=== PATIENT | female | born 1955 | race Caucasian/White ===

== ENCOUNTER 2025-02-20 15:59 | Emergency (ER) | payer MEDICARE, SELFPAY ==
--- OUTSIDE RECORDS SUMMARY | 2025-02-20 16:26 | XMS_ITS | Encounter Summary ---
Author Organization [facility] Address [facility] [place] [address] Care Team Providers Care Inspector Ball Points Name Role Phone Pancho Villegas Primary Care Provid er Barber Arce MD Unavailable [phone] Source Comments In the event this information is protected by the Federal Confidentiality of Alcohol and Drug AbusePatient Records regulations: The Federal rules restrict any use of the information to criminally investigate or prosecute any alcohol or drug abuse patient.[facility] Encounter Details Date Type Department Care Team (Late st Contact Info) Description 10/07/2022 Patient Msg Gynecology Oncology [address] [place] [address] [place] [address] Amina Meeks MD [facility] [place] [address] Appointment Cancellation Request Social History Tobacco Use Types Packs/Day Years Used Date Smoking Tobacco: Never Smokeless Tobacco: Never Alcohol Use Standard Drinks/Week Comments Not Currently 0 (1 standard drink = 0.6 oz pur e alcohol) Area Deprivation Index Answer Date Anish rded National Score (1-100), lower number is lower ri sk 52 07/11/2022 State Score (1-10), lower number is lower risk N ot on file 07/11/2022 Data from: https://www.neighborhoodatlas.medicine.[facility].edu/. Last address used for calculation [address] 07/11/2022 Comments No Sex and Gender Information Value Date Recorded Sex Assigned at Not on file Legal Sex Female 2:22 PM EST Gender Identity Not on file Sexual Orientation Not on file documented as of this encounter Plan of Treatment Upcoming Encounters Date Type Department Care Team (Late st Contact Info) Description 07/12/2025 2:15 PM EST Visit (SP) Office Gynecology Oncology [address] [place] [address] [place] [address] Amina Meeks MD [address] [place] [address] 1 year follow up documented as of this encounter Visit Diagnoses Not on filedocumented in this encounter Care Teams Inspector Ball Points Relationship Specialty Start Date End Date Pancho Villegas DO [address] [place] [address] PCP - General Family Medicine 07/14/22 Barber Arce MD [address] [place] [id number] Acetylene Plant Operator 09/09/22 documented as of this encounter
--- OUTSIDE RECORDS SUMMARY | 2025-02-20 16:26 | XMS_ITS | Encounter Summary ---
Author Organization [facility] Address [address] [place] [address] Care Team Providers Care Middleware Administrator Name Role Phone Pancho Villegas DO Unavailable [phone] Henryjose Pancho Mauro DO Primary Care Provider + [phone] Pancho Villegas DO Unavailable [phone] Encounter Details Date Type Department Care Team (Late st Contact Info) Description 04/14/2023 External Result Encounter [facility] External Department Unsolicited Ksenia Myers DPM [address] [place] [address] Social History Tobacco Use Types Packs/Day Years Used Date Smoking Tobacco: Never Smokeless Tobacco: Never Alcohol Use Standard Drinks/Week Comments Never 0 (1 standard drink = 0.6 oz pur e alcohol) caffeine 1-2 cups per day Humiliation, Afraid, Rape, and Kick questionnair e Answer Date Recorded Within the last year, have y ou been afraid of your partner or ex-partner? No 03/24/2023 Within the last year, have y ou been humiliated or emotionally abused in other ways by your partner or ex-partner? No Within the last year, have y ou been kicked, hit, slapped, or otherwise physically hurt by your partner or ex-partner? No 03/24/2023 Within the last year, have y ou been raped or forced to have any kind of sexual activity by your partner or ex-partner? No 03/24/2023 Social Connection and Isolat ion Panel [NHANES] Answer Date Recorded In a typical week, how many times do you talk on the phone with family, friends, or neighbors? Once a week 03/24/2023 How often do you get togethe r with friends or relatives? Patient declined 03/24/2023 How often do you attend chur or sabianist services? More than 4 times per year 03/24/2023 Do you belong to any clubs o r organizations such as mormon groups, unions, fraternal or athletic groups, or school groups? No 03/24/2023 How often do you attend meet ings of the clubs or organizations you belong to? Never 03/24/2023 Are you , , di vorced, , never , or living with a partner? 03/24/2023 AUDIT-C Answer Date Recorded Q1: How often do you have a drink containing alcohol? Never 03/24/2023 Q2: How many drinks containi ng alcohol do you have on a typical day when you are drinking? Patient does not drink Q3: How often do you have si x or more drinks on one occasion? Never 03/24/2023 Overall Financial Resource Strain (CARDIA) Answe r Date Recorded How hard is it for you to pa y for the very basics like food, housing, medical care, and heating? Not very hard 03/24/2023 PHQ-2 Answer Date Recorded Patient Health Questionnaire-2 Score 1 2023 [facility] - Occupational Stress Questionnaire Answer Date Recorded Do you feel stress - tense, restless, nervous, or anxious, or unable to sleep at night because your mind is troubled all the time - these days? Only a little 03/24/2023 Exercise Vital Sign Answer Date Recorde d On average, how many days pe r week do you engage in moderate to strenuous exercise (like a brisk walk)? 4 days Minutes of Exercise per Session Not on file 03/24/2023 Hunger Vital Sign Answer Date Recorded Within the past 12 months, y ou worried that your food would run out before you got the money to buy more. Sometimes true Within the past 12 months, t he food you bought just didn't last and you didn't have money to get more. Never true PRAPARE - Transportation Answer Date Re corded In the past 12 months, has l ack of transportation kept you from medical appointments or from getting medications? No 02/28 In the past 12 months, has l ack of transportation kept you from meetings, work, or from getting things needed for daily living? No 03/24/2023 Housing Stability Vital Sign Answer Dragan e Recorded In the last 12 months, was t here a time when you were not able to pay the mortgage or rent on time? No 03/24/2023 In the last 12 months, how many places have you lived? 1 03/24/2023 In the last 12 months, was t here a time when you did not have a steady place to sleep or slept in a long-term (including now)? No 03/24/2023 Comments Unknown Sex and Gender Information Value Date Recorded Sex Assigned at Not on file Legal Sex Female 8:27 PM EDT Gender Identity Not on file Sexual Orientation Not on file COVID-19 Exposure Response Date Recorded In the last 10 days, have yo u been in contact with someone who was confirmed or suspected to have Coronavirus/COVID-19? No / Unsure 04/09/2023 2:26 PM EDT documented as of this encounter Plan of Treatment Upcoming Encounters Date Type Department Care Team (Late st Contact Info) Description 09/05/2025 3:25 PM EDT Office Visit [facility] [address] [place] [address] Rosalia Pimentel, MUSHROOM GROWING SUPERVISOR-SECURITY SYSTEMS ADMINISTRATOR [address] [place] [address] documented as of this encounter Procedures Procedure Name Priority Date/Time Associated Diagnosis Comments ECG 12-LEAD 04/14/2023 12:11 PM EDT documented in this encounter Results * ECG 12 lead (04/14/2023 12:11 PM EDT) 04/14/2023 12:1 1 PM EDT [facility] - 06/03/2023 10:53 AM [facility] Main [address] [address] Electrocardiograph Report Signed Patient: Jessica Carranza MR#: [id number] 37 : 1955 Acct:[id number] Age/Sex: 68 / F ADM Date: 04/14/23 Loc: Room: Type: [facility] Attending Dr: Ksenia Myers DPM Ordering Provider: sKenia Myers DPM Date of Service: 04/14/23/ ECG/ECG 12 lead ECG: pst Copies to: Test Reason : Blood Pressure : / mmHG Vent. Rate : 069 BPM Atrial Rate : 069 BPM P-R Int : 164 ms QRS Dur : 080 ms QT Int : 408 ms P-R-T Axes : 066 -01 064 degrees QTc Int : 437 ms Normal sinus rhythm Normal ECG When compared with ECG of 22-SEP-2018 01:38, Criteria for Septal infarct are no longer present Confirmed by [facility]IA[facility] RICK [facility] ([id number] on 04/14/2023 2:42:50 PM Referred By: Electronically Signed By:LYNN LEMUS MD [facility] Transcribed By: MUS Signed By Jarek Lemus MD 04/14/23 1442 Procedure Note Joann Lemus MD - 06/03/2023 [facility] Main [place] [id number] Electrocardiograph Report Signed Patient: Jessica Carranza MMR#: [id number] [birth year] : 1955cct:[id number] Age/Sex: 68 / FADM Date: 04/14/23 Loc: Room:Type: [facility] Attending Dr: Ksenia Myers DPM Ordering Provider: Ksenia Myers DPM Date of Service: 04/14/23/ ECG/ECG 12 lead ECG: pst Copies to: Test Reason : Blood Pressure : / mmHG Vent. Rate : 069 BPM Atrial Rate : 069 BPM P-R Int : 164 ms QRS Dur : 080 ms QT Int : 408 ms P-R-T Axes : 066 -01 064 degrees QTc Int : 437 ms Normal sinus rhythm Normal ECG When compared with ECG of 22-SEP-2018 01:38, Criteria for Septal infarct are no longer present Confirmed by [facility] ([id number]) on 04/14/2023 2:42:50 PM Referred By: Electronically Signed By:LYNN LEMUS MD, FACC Transcribed By: MUS Signed By Jarek Lemus MD 04/14/23 1442 us Ksenia Myers DPM ECG ORDERABLES Final Resu lt [facility] [address] [place] [address], documented in this encounter Visit Diagnoses Not on filedocumented in this encounter Care Teams Middleware Administrator Relationship Specialty Start Date End Date Pancho Villegas DO [address] [place] [address] PCP - Devoted 06/29/22 06/28/24 Pancho Villegas DO [address] [place] [address] PCP - General Family Medicine 01/07/23 Pancho Villegas DO [address] [place] [address] PCP - Medical [place] 06/29/2406/28 documented as of this encounter
--- OUTSIDE RECORDS SUMMARY | 2025-02-20 16:26 | XMS_ITS | Encounter Summary ---
Author Organization [facility] Address [address] [place] [address] Care Team Providers Care Behavioral Pediatrician Name Role Phone Pancho Villegas DO Unavailable [phone] Pancho Villegas DO Primary Care Provider + [phone] Pancho Villegas DO Unavailable [phone] Encounter Details Date Type Department Care Team (Late st Contact Info) Description 2023 Abstract [facility] [address] [place] [address] Pancho Villegas, DO [address] [place] [address] Social History Tobacco Use Types Packs/Day Years [...] 03/24/2023 How often do you attend chur ch or scientology services? More than 4 times per year 03/24/2023 Do you belong to any clubs o r organizations such as congregational groups, unions, fraternal or athletic groups, or [...] Recorded Patient Health Questionnaire-2 Score 1 2023 [facility] Answer Date Recorded [...] suspected to have Coronavirus/COVID-19? No / Unsure 03/24/2023 10:48 AM EDT documented as of this encounter Functional Status * Over the past 2 weeks, how often have you been bothered by any of the following problems? Question Answer Date of Assessment Author Little interest or pleasure in doing things Not at all 2023 9:34 AM EDT Monica Carranza LP N Feeling down, depressed, or hopeless Several days 2023 9:34 AM EDT Monica Carranza LP N Patient Health Questionnaire -2 Score 1 2023 9:34 AM EDT Monica Carranza LP N documented as of this encounter Plan of Treatment Upcoming Encounters Date Type Department Care Team (Late st Contact Info) Description 09/05/2025 3:25 PM EDT Office Visit [facility] [address] [place] [address] Rosalia Pimentel, MEDICAL DRIVER-SULFUR BURNER [address] [place] [address] documented as of this encounter Visit Diagnoses Not on filedocumented in this encounter Care Teams Behavioral Pediatrician Relationship Specialty Start Date End Date Pancho Villegas DO [address] [place] [address] PCP - Devoted 06/29/22 06/28/24 Pancho Villegas DO [address] [place] [address] PCP - General Family Medicine 01/07/23 Pancho Villegas DO [address] [place] [address] PCP - Medical [facility] 06/29/2406/28 documented as of this encounter
--- OUTSIDE RECORDS SUMMARY | 2025-02-20 16:26 | XMS_ITS | Clinical Summary ---
Author Organization [facility] Address [address] [place] [address] Care Team Providers Care Panel Saw Operator Name Role Phone Pancho Villegas DO Primary Care Provider [phone] Pancho Villegas DO Unavailable [phone] Allergies No known active allergies Medications CINNAMON PO Take by mouth 1 (one) time each day at the same time. Active cholecalciferol (Vitamin D-3) 50 MCG (2000 UT) tablet Take by mouth 1 (one) time each day at the same time. Active Turmeric (Curcumin 95) 500 MG capsule as directed Orally Active calcium carbonate (Os-Mauricio) 1250 (500 Ca) MG tablet Take by mouth every 12 (twelve) hours. Active ascorbic acid (Vitamin C) 500 MG tablet Take by mouth 1 (one) time each day at the same time. Active SILVER EX Silver Active zinc 50 MG tablet Take by mouth. Active Magnesium 500 MG capsule 1 (one) time each day at the same time. Active Elderberry 500 MG capsule 1 capsule. Active [place]-3 Fatty Acids (Fish Oil) 1000 MG capsule delayed-release Take by mouth. Active FLUoxetine (PROzac) 20 MG capsuleIndication s:Anxiety Take 1 capsule (20 mg) by mouth Daily 90 capsule 1 5 04/18/20 25 Active olmesartan-hydroC HLOROthiazide (BENIcar HCT) 20-12.5 MG tabletIndications :Essential hypertension Take 1 tablet by mouth Daily 90 tablet 1 5 04/18/20 25 Active Tretinoin (Altreno) 0.05 % lotionIndications :Rhytides Apply a thin layer topically to the face at bedtime. 45 g 6 5 Active Active Problems Problem Noted Date Diagnosed Date CMC arthritis 2023 Mild major depression 2023 Hypertension 07/14/2022 Overview (02/25/2024): Last Assessment & Plan: Assessment: stable on medications History of hysterectomy 05/08/2020 Hyperlipidemia 11/17/2018 Anxiety 04/20/2018 Essential hypertension 04/20/2018 Overview (2023): Last Assessment & Plan: Assessment: stable on medications 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 disorder 03/30 Resolved Problems Problem Noted Date Diagnosed Date Resolved Date Obesity (BMI 30-39.9) 03/31/20232022 Psychophysiological insomnia 2023 2023 Right Achilles tendinitis 2023 Localized, primary osteoarthritis of hand 11/07/2021 2023 Foot pain 02/27/2021 2023 Female cystocele 05/08/2020 2023 Genital warts 05/08/2020 2023 Gynecological disease 05/08/20202022 Leukocytosis 11/17/2018 2023 Obesity 04/20/2018 2023 Encounters Date Type Department Care Team Description 12/04/2024 Results Follow-Up [facility] [address] [place] [address] Pancho Villegas DO POCT Urinalysis dipstick, Urine culture (clean catch), Urine Culture Clean Catch Reflex 11/29/2024 1:30 PM EDT Office Visit [facility] [address] [place] [address] Pancho Villegas DO Acute cystitis with hematuria (Primary Dx); Dysuria; Routine general medical examination at a health care facility; 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 disorder; Essential hypertension ; Anxiety; Mixed hyperlipidemia ; Mild major depression ; Primary hypertension ; Severe obesity (BMI 35.0-39.9) with comorbidity (CMS-HCC); CMC arthritis 11/29/2024 Bamboo flowsheet [facility] [address] [place] [address] Pancho Villegas DO 11/29/2024 Travel from Last 3 Months Immunizations Immunization Administration Dates Next Due Pneumococcal Conjugate PCV 13 04/20/2018 Pneumococcal Polysaccharide PPSV23 12/13/2019 Family History Medical History Relation Name Comments Cancer Father Heart disease Mother Hyperlipidemia Mother Hypertension Mother Ovarian cancer Sister 5 Relation Name Status Comments Brother 5 Daughter 1 Father Mother Sister 5 Son 1 Social History Tobacco Use Types Packs/Day Years Used Date Smoking Tobacco: Never Smokeless Tobacco: Never Tobacco Cessation:Counseling Given: No Alcohol Use Standard Drinks/Week Comments Never 0 (1 standard drink = 0.6 oz pure alcohol) caffeine intake:1-2 cups per day coffee B1300 Health Literacy Answer Date Recor ded How often do you need to hav e someone help you when you read instructions, pamphlets, or other written material from your doctor or pharmacy? Never 05/24/2024 Humiliation, Afraid, Rape, and Kick questionnair e [...] the phone with family, friends, or neighbors? Twice a week 05/24/2024 How often do you get togethe r with friends or relatives? Once a week 05/24/2024 How often do you attend [facility] or religion services? More than 4 times per year 05/24/2024 Do you belong to any clubs o r organizations such as baptist groups, unions, fraternal or athletic groups, or school groups? Yes 05/24/2024 Attends Club or Organization Meetings Not on bayron e 05/24/2024 Are you , , di vorced, , never , or living with a partner? 05/24/2024 AUDIT-C Answer Date Recorded Q1: How often do you have a drink containing alcohol? Never 05/24/2024 Q2: How many drinks containi ng alcohol do you have on a typical day when you are drinking? Patient does not drink Q3: How often do you have si x or more drinks on one occasion? Never 05/24/2024 Overall Financial Resource Strain (CARDIA) Answe r Date Recorded How hard is it for you to pa y for the very basics like food, housing, medical care, and heating? Not very hard 05/24/2024 PHQ-2 Answer Date Recorded Patient Health Questionnaire-2 Score 0 11/29/2024 [facility] - Occupational Stress Questionnaire Answer Date Recorded Do you feel stress - tense, restless, nervous, or anxious, or unable to sleep at night because your mind is troubled all the time - these days? Only a little 05/24/2024 Exercise Vital Sign Answer Date Recorde d On average, how many days pe r week do you engage in moderate to strenuous exercise (like a brisk walk)? 3 days 05/24/2024 On average, how many minutes do you engage in exercise at this level? 30 min 05/24/2024 Hunger Vital Sign Answer Date Recorded Within the past 12 months, y ou worried that your food would run out before you got the money to buy more. Patient declined Within the past 12 months, t he food you bought just didn't last and you didn't have money to get more. Never true PRAPARE - Transportation Answer Date Re corded In the past 12 months, has l ack of transportation kept you from medical appointments or from getting medications? No 04/30 In the past 12 months, has l ack of transportation kept you from meetings, work, or from getting things needed for daily living? No 05/24/2024 Housing Stability Vital Sign Answer Dragan e [...] place to sleep or slept in a chcf (including now)? No 03/24/2023 Housing Stability Vital Sign Answer Dragan e Recorded In the last 12 months, was t here a time when you were not able to pay the mortgage or rent on time? No 05/24/2024 Number of Times Moved in the Last Year Not on fi le 05/24/2024 At any time in the past 12 [facility], were you homeless or living in a chcf (including now)? No 05/24/2024 Comments Unknown Sex and Gender Information Value Date Recorded Sex Assigned at Not on file Legal Sex Female 8:27 PM EDT Gender Identity Not on file Sexual Orientation Not on file Last Filed Vital Signs Vital Sign Reading Time Taken Comments Blood Pressure 110/68 11/29/2024 1:34 PM EDT Pulse 80 11/29/2024 1:34 PM EDT Temperature 36.8 C (98.2 F) 11/29/2024 1:34 PM EDT Respiratory Rate - - Oxygen Saturation 98% 11/29/2024 1:34 PM EDT Inhaled Oxygen Concentration - - Weight 91.6 kg (202 lb) 11/29/2024 1:34 PM EDT Height 158.8 cm (5' 2.5 ) 11/29/2024 1:34 PM EDT Body Mass Index 36.36 11/29/2024 1:34 PM EDT Plan of Treatment Upcoming Encounters Date Type Department Care Team (Late st Contact Info) Description 09/05/2025 3:25 PM EDT Office Visit [facility] [address] [place] [address] Rosalia Pimentel APRN-LAW FIRM ADMINISTRATOR [address] [place] [address] Health Maintenance Due Date Last Done Comments CT Colonography 1953 Colonoscopy 1955 FIT 1953 FOBT 1955 Sigmoidoscopy 1955 Influenza Vaccine (#1) 2025 Mammogram 08/18/2025 08/18/2024, 03/31, 11/18/2021, Additional history exists Medicare Annual Wellness (AWV) 11/29/2025 0 11/29/2024, 06/16/2024, 2023 Colorectal Cancer Screening 06/29/2027 FIT-DNA 06/29/2027 06/29/2024, 05/30, 06/18/2021, Additional history exists Pneumococcal Vaccine: 65+ Years Completed , 04/20/2018 Procedures Procedure Name Priority Date/Time Associated Diagnosis Comments POCT URINALYSIS DIPSTICK Routine 11/29/2024 1:49 PM EDT Dysuria URINE CULTURE CLEAN CATCH REFLEX Routine 11/29/2024 12:00 AM EDT CULTURE, URINE, ROUTINE Routine 11/29/2024 12:00 AM EDT Dysuria BI MAMMOGRAM SCREENING TOMOSYNTHESIS BILATERAL Routine 08/18/2024 2:32 PM EST Encounter for screening mammogram for malignant neoplasm of breast LAB COLOGUARD COLON CANCER SCREEN Routine 06/18/2021 from Last 3 Months or Most Recently Relevant to Health Maintenance Results * (ABNORMAL) POCT Urinalysis dipstick (11/29/2024 1:49 PM EDT) Color, UA Yellow Clarity, UA Cloudy Glucose, UA Negative Negative - 1999(110) ++++ mg/dL Bilirubin, UA Negative Negative - 4(70) +++ mg/dL Ketones, UA Negative Negative - 160(16) ++++ mg/dL Spec Grav, UA 1.010 1 - 1.03 Blood, UA Positive Negative - 50 Rich/mcL pH, UA 6.0 5 - 9 Protein, UA Negative Negative - 1999(20) ++++ mg/dL Urobilinogen, UA 0.2 0.2 - 12 mg/dL Leukocytes, UA Positive Negative - 500+++ Aby/mcL Nitrite, UA Positive Negative - Positive Urine 11/29/2024 1:49 PM EDT Pancho Villegas DO POINT OF CARE TEST ENTER/E DIT ORDERABLES Final Result * (ABNORMAL) Urine Culture Clean Catch Reflex (11/29/2024 12:00 AM EDT) Ur Cult 1 Escherichia coli(A) [facility] Comment: Cefazolin with an JERRICA <=16 predicts susceptibility to the oral agents cefaclor, cefdinir, cefpodoxime, cefprozil, cefuroxime, cephalexin, and loracarbef when used for therapy of uncomplicated urinary tract infections due to E. coli, Klebsiella pneumoniae, and Proteus mirabilis. 25,000-50,000 colony forming units per mL Ur Cult Suscep Comment [facility] Comment: S = Susceptible; I = Intermediate; R = Resistant P = Positive; N = Negative MICS are expressed in micrograms per mL Antibiotic RSLT#1 RSLT#2 RSLT#3 RSLT#4 Amoxicillin/Clavulanic Acid S Ampicillin S Cefazolin S Cefepime S Cefoxitin S Cefpodoxime S Ceftriaxone S Ciprofloxacin S Ertapenem S Gentamicin S Levofloxacin S Meropenem S Nitrofurantoin S Piperacillin/Tazobactam S Tetracycline S Tobramycin S Trimethoprim/Sulfa S 11/29/2024 11/29/2024 Narrative [facility] - 12/02/2024 3:07 PM EDT Performed at: - [address] [id number] Cost Report Clerk: Michele Carvalho PhD, Phone: [phone] Pancho Villegas DO LAB URINE ORDERABLES Final Result [facility] * (ABNORMAL) Urine culture (clean catch) (11/29/2024 12:00 AM EDT) Urine Cult Rt Status Final report(A) [facility] Urine Urine specimen obtained by clean catch procedure / Unknown 11/29/2024 11/29/2024 Comment:Urine, Clean Catch P r Narrative [facility] - 12/02/2024 3:07 PM EDT Performed at: 01 - [address] [id number] Cost Report Clerk: Michele Carvalho PhD, Phone: [phone] us Pancho Villegas DO LAB MICROBIOLOGY - GENERAL ORDERABLES Final Result [facility] * Bilateral screening mammogram with tomosynthesis (08/18/2024 2:32 PM EST) Anatomical Region Laterality Modality Breast Bilateral Mammography 08/18/2024 3:44 PM EST Impressions 08/18/2024 3:54 PM EST Impression: No specific evidence of malignancy seen in either breast. BIRADS 2 - Benign Findings DENSITY: There are scattered areas of fibroglandular density. FOLLOW-UP: Routine Screening Mammogram ELECTRONICALLY SIGNED BY: Jerry Sloan M.D. Narrative 08/18/2024 3:54 PM EST Examination: BI MAMMOGRAM SCREENING TOMOSYNTHESIS BILATERAL Clinical History: screening Technique: Screening digital mammography study of both breasts was performed with 2-D and 3-D tomosynthesis imaging. Study was compared to the prior exam dated 04/28/2023. Findings: There is no evidence of interval dominant spiculated mass, grouped microcalcifications, or skin thickening which would be suggestive of malignancy. A few benign-appearing calcifications are seen bilaterally. Partially visualized axillary lymph node is noted on the left and appears grossly unremarkable. Procedure Note Jerry Sloan MD - 08/18/2024 Examination: BI MAMMOGRAM SCREENING TOMOSYNTHESIS BILATERAL Clinical History: screening Technique: Screening digital mammography study of both breasts wasperformed with 2-D and 3-D tomosynthesis imaging. Study was compared tothe prior exam dated 04/28/2023. Findings: There is no evidence of interval dominant spiculated mass,grouped microcalcifications, or skin thickening which would be suggestiveof malignancy. A few benign-appearing calcifications are seen bilaterally. Partiallyvisualized axillary lymph node is noted on the left and appears grosslyunremarkable. IMPRESSION: Impression: No specific evidence of malignancy seen in either breast. BIRADS 2 - Benign Findings DENSITY: There are scattered areas of fibroglandular density. FOLLOW-UP: Routine Screening Mammogram ELECTRONICALLY SIGNED BY: Jerry Sloan M.D. Pancho Villegas DO IMG BI PROCEDURES Final Re sult * Cologuard?? colon cancer screening (06/18/2021) COLOGUARD RESULT REPORTABLE Negative Negative [facility] Comment: NEGATIVE TEST RESULT. A negative Cologuard result indicates a low likelihood that a colorectal cancer (CRC) or advanced adenoma (adenomatous polyps with more advanced pre-malignant features) is present. The chance that a person with a negative Cologuard test has a colorectal cancer is less than 1 in 1500 (negative predictive value >99.9%) or has an advanced adenoma is less than 5.3% (negative predictive value 94.7%). These data are based on a prospective cross-sectional study of 10,000 individuals at average risk for colorectal cancer who were screened with both Cologuard and colonoscopy. (Eddie Vargas et al, N Engl J Med 2014;370(14):4722-2423) The normal value (reference range) for this assay is negative. COLOGUARD RE-SCREENING RECOMMENDATION: Periodic colorectal cancer screening is an important part of preventive healthcare for asymptomatic individuals at average risk for colorectal cancer. Following a negative Cologuard result, the [place] Cancer Society and U.S. Multi-Society Task Force screening guidelines recommend a Cologuard re-screening interval of 3 years. References: [place] Cancer Society Guideline for Colorectal Cancer Screening: https://www.cancer.org/cancer/qvagr-bndeie-aapuap/vstfprejr-ewlwwmlhx-gmqewpn/ac s-rec ommendations.html.; Vasu DK, Razia CR, Klarissa PATIÑO, Colorectal Cancer Screening: Recommendations for Physicians and Patients from the U.S. Multi-Society Task Force on Colorectal Cancer Screening , Am J Gastroenterology 2017; 112:2253-4053. TEST DESCRIPTION: Composite algorithmic analysis of stool DNA-biomarkers with hemoglobin immunoassay. Quantitative values of individual biomarkers are not reportable and are not associated with individual biomarker result reference ranges. Cologuard is intended for colorectal cancer screening of adults of either sex, 45 years or older, who are at average-risk for colorectal cancer (CRC). Cologuard has been approved for use by the U.S. FDA. The performance of Cologuard was established in a cross sectional study of average-risk adults aged 50-84. Cologuard performance in patients ages 45 to 49 years was estimated by sub-group analysis of near-age groups. Colonoscopies performed for a positive result may find as the most clinically significant lesion: colorectal cancer [4.0%], advanced adenoma (including sessile serrated polyps greater than or equal to 1cm diameter) [20%] or non- advanced adenoma [31%]; or no colorectal neoplasia [45%]. These estimates are derived from a prospective cross-sectional screening study of 10,000 individuals at average risk for colorectal cancer who were screened with both Cologuard and colonoscopy. (Eddie Mallory. et al, N Engl J Med 2014;370(14):0288-7595.) Cologuard may produce a false negative or false positive result (no colorectal cancer or precancerous polyp present at colonoscopy follow up). A negative Cologuard test result does not guarantee the absence of CRC or advanced adenoma (pre-cancer). The current Cologuard screening interval is every 3 years. ([place] Cancer Society and U.S. Multi-Society Task Force). Cologuard performance data in a 10,000 patient pivotal study using colonoscopy as the reference method can be accessed at the following location: www.Schvey.Nonabox/results. Additional description of the Cologuard test process, warnings and precautions can be found at www.cologuard.com. 06/18/2021 Pancho Villegas DO LAB MOLECULAR DIAGNOSTICS ORDERABLES Final Result [facility] from Last 3 Months or Most Recently Relevant to Health Maintenance Insurance [employer] MEDICARE Care Teams Panel Saw Operator Relationship Specialty Start Date End Date Pancho Villegas DO [address] [place] [address] PCP - General Family Medicine 01/07/23 Pancho Villegas DO [address] [place] [address] PCP - Medical [facility] 06/29/2406/28
--- OUTSIDE RECORDS SUMMARY | 2025-02-20 16:26 | XMS_ITS | Encounter Summary ---
Author Organization [facility] Address [facility] [place] [address] Care Team Providers Care Conveyor Belt Installer Name Role Phone Pancho Villegas Primary Care Provid er Barber Arce MD Unavailable [phone] Source Comments In the event this information is protected by the Federal Confidentiality of Alcohol and Drug AbusePatient Records regulations: The Federal rules restrict any use of the information to criminally investigate or prosecute any alcohol or drug abuse patient.[facility] Encounter Details Date Type Department Care Team (Late st Contact Info) Description 07/14/2022 Patient Msg Pre Anesthesia [address] [place] [address] Maria Teresa Soto PA-C [address] [place], [place] [id number] Pre-Op Instructions Social History Tobacco Use Types Packs/Day Years [...] N ot on file 07/11/2022 Data from: https://www.neighborhoodatlas.[facility]/. Last address used for calculation [address] 07/11/2022 Comments Unknown Sex and Gender Information Value Date Recorded Sex Assigned at Not on file Legal Sex Female 2:22 PM EST Gender Identity Not on file Sexual Orientation Not on file documented as of this encounter Plan of Treatment Upcoming Encounters Date Type Department Care Team (Late st Contact Info) Description 07/12/2025 2:15 PM EST Visit (SP) Office Gynecology Oncology [address] [place] [address] [place] [address] Amina Meeks MD [address] [place] [address] 1 year follow up documented as of this encounter Visit Diagnoses Not on filedocumented in this encounter Care Teams Conveyor Belt Installer Relationship Specialty Start Date End Date Pancho Villegas DO [address] [place] [address] PCP - General Family Medicine 07/14/22 Barber Arce MD [address] [place] [id number] Produce Field Merchandiser 09/09/22 documented as of this encounter
--- OUTSIDE RECORDS SUMMARY | 2025-02-20 16:26 | XMS_ITS | Encounter Summary ---
Author Organization [facility] Address [address] [place] [address] Care Team Providers Care Aircraft Instrument Tester Name Role Phone Pancho Villegas DO Unavailable [phone] Pancho Villegas DO Primary Care Provider + [phone] Pancho Villegas DO Unavailable [phone] Encounter Details Date Type Department Care Team (Late st Contact Info) Description 05/04/2023 Abstract [facility] [address] [place] [address] Pancho Villegas, DO [address] [place] [address] Social History Tobacco Use Types Packs/Day Years [...] often do you attend chur ch or gnosticist services? More than 4 times per year 03/24/2023 Do you belong to any clubs o r organizations such as judaism groups, unions, fraternal or athletic groups, or [...] Recorded Patient Health Questionnaire-2 Score 1 [facility] Questionnaire Answer Date [...] place to sleep or slept in a prison (including now)? No 03/24/2023 Comments Unknown Sex [...] suspected to have Coronavirus/COVID-19? No / Unsure 05/05/2023 8:44 AM EST documented as of this encounter Plan of Treatment Upcoming Encounters Date Type Department Care Team (Late st Contact Info) Description 09/05/2025 3:25 PM EDT Office Visit [facility] [address] [place] [address] Rosalia Pimentel, HEALTH ADVISOR-CARD PAINTER [address] [place] [address] documented as of this encounter Visit Diagnoses Not on filedocumented in this encounter Care Teams Aircraft Instrument Tester Relationship Specialty Start Date End Date Pancho Villegas DO [address] [place] [address] PCP - [facility] 06/29/22 06/28/24 Pancho Villegas DO [address] [place] [address] PCP - General Family Medicine 01/07/23 Pancho Villegas DO [address] [facility] [address] [place] [address] PCP - Medical [facility] 06/29/2406/28 documented as of this encounter
--- OUTSIDE RECORDS SUMMARY | 2025-02-20 16:26 | XMS_ITS | Encounter Summary ---
Author Organization [facility] Address [address] [place] [address] Care Team Providers Care Machine Icer Name Role Phone Pancho Villegas DO Unavailable [phone] Pancho Villegas DO Primary Care Provider + [phone] Pancho Villegas DO Unavailable [phone] Encounter Details Date Type Department Care Team (Late st Contact Info) Description 05/08/2023 Abstract [facility] [address] [place] [address] Pancho Villegas, DO [address] [place] [address] Social History Tobacco Use Types Packs/Day Years [...] often do you attend chur ch or restoration services? More than 4 times per year 03/24/2023 Do you belong to any clubs o r organizations such as restorationist groups, unions, fraternal or athletic groups, or [...] Recorded Patient Health Questionnaire-2 Score 1 [facility] Questionnaire Answer Date [...] place to sleep or slept in a care home (including now)? No 03/24/2023 Comments Unknown Sex [...] Dermatology [address] [place] [address] Rosalia Pimentel, PRESSURE SUPERVISOR-REPAIRER CONTROLLER TESTER [address] [place] [address] documented as of this encounter Visit Diagnoses Not on filedocumented in this encounter Care Teams Machine Icer Relationship Specialty Start Date End Date Pancho Villegas DO [address] [place] [address] PCP - [facility]oted 06/29/22 06/28/24 Pancho Villegas DO [address] [place] [address] PCP - General Family Medicine 01/07/23 Pancho Villegas DO [address] [facility] [address] [place] [address] PCP - Medical [facility] 06/29/2406/28 documented as of this encounter
--- OUTSIDE RECORDS SUMMARY | 2025-02-20 16:26 | XMS_ITS | Encounter Summary ---
Author Organization [facility] Address [address] [facility] [place] [address] Care Team Providers Care Talent Rep Name Role Phone Pancho Villegas Primary Care Provid er Barber Arce MD Unavailable [phone] Source Comments In the event this information is protected by the Federal Confidentiality of Alcohol and Drug AbusePatient Records regulations: The Federal rules restrict any use of the information to criminally investigate or prosecute any alcohol or drug abuse patient.[facility] Encounter Details Date Type Department Care Team (Late st Contact Info) Description 06/16/2022 Lab Requisition [facility] [address] [place] [address] Amina Meeks MD [address] [place] [address] Person encountering health services to consult on behalf of another person Social History Tobacco Use Types Packs/Day Years Used Date Smoking Tobacco: Never Assessed Comments Unknown Sex and Gender Information Value Date Recorded Sex Assigned at Not on file Legal Sex Female 2:22 PM EST Gender Identity Not on file Sexual Orientation Not on file documented as of this encounter Plan of Treatment Upcoming Encounters Date Type Department Care Team (Late st Contact Info) Description 07/12/2025 2:15 PM EST Visit (SP) Office Gynecology Oncology [address] [place] [address] [place] [address] mAina Meeks MD [address] [place], [place] [address]d [place] [address] 1 year follow up documented as of this encounter Procedures Procedure Name Priority Date/Time Associated Diagnosis Comments OUTSIDE SURG PATH SLIDE REVIEW Routine 06/16/2022 9:37 AM EST Person encountering health services to consult on behalf of another person documented in this encounter Results * OUTSIDE SURG PATH SLIDE REVIEW (06/16/2022 9:37 AM EST) Case Report Surgical Pathology Report Case: [id number] Authorizing Provider: Amina Meeks MD Collected: 06/16/2022 09:37 AM Ordering Location: [facility] Main Received: 06/16/2022 09:36 AM Pathologist: Kaykay Ordoñez MD Specimen: SLIDE(S), 1 SLIDE ([id number]) 06/16/2022 2:50 PM EST [facility] FINAL DIAGNOSIS Review of slides from [facility] ([id number], 06/02/2022) Right perineum, biopsy: High-grade squamous intraepithelial lesion (VIN3); see comment. 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 06/16/2022 2:50 PM EST [facility] Performing Lab Diagnostic interpretation performed at [facility], [address] [place] [address] CLIA# [id number] Roll Contour Grinder: Vel Morales M.D. 06/16/2022 2:50 PM EST [facility] Blocks or Slides MICROSCOPE SLIDE / Unknown 06/16/2022 9:37 AM EST 06/16/2022 9:36 AM EST us Amina Meeks MD SURGICAL PATHOLOGY Silva mclain Result [facility] [address] [facility] [address] [place] [address], documented in this encounter Visit Diagnoses Diagnosis Person encountering health services to consult on behalf of another person Other person consulting on behalf of another person documented in this encounter Care Teams Talent Rep Relationship Specialty Start Date End Date Pancho Villegas DO [address] [place] [address] PCP - General Family Medicine 07/14/22 Barber Arce MD [address] [place] [address] Roller Mill Tender 09/09/22 documented as of this encounter
--- OUTSIDE RECORDS SUMMARY | 2025-02-20 16:26 | XMS_ITS | Encounter Summary ---
Author Organization [facility] Address [facility] [place] [address] Care Team Providers Care Tong Carrier Name Role Phone Pancho Villegas Primary Care Provid er Barber Arce MD Unavailable [phone] Source Comments In the event this information is protected by the Federal Confidentiality of Alcohol and Drug AbusePatient Records regulations: The Federal rules restrict any use of the information to criminally investigate or prosecute any alcohol or drug abuse patient.[facility] Encounter Details Date Type Department Care Team (Late st Contact Info) Description 07/25/2022 Patient Msg Gynecology [address] [place] [id number] Nurse [address] [place], [place] [id number] post op instructions Social History Tobacco Use Types Packs/Day Years [...] N ot on file 07/11/2022 Data from: https://www.neighborhoodatlas.medicine.[facility].edu/. Last address used for calculation [address] [...] PM EST Visit (SP) Office Gynecology Oncology [address] [place] [address] [place] [address] Amina Meeks MD [address] [place] [address] 1 year follow up documented as of this encounter Visit Diagnoses Not on filedocumented in this encounter Care Teams Tong Carrier Relationship Specialty Start Date End Date Pancho Villegas DO [address] [place] [address] PCP - General Family Medicine 07/14/22 Barber Arce MD [address] [place] [phone] Control Supervisor 09/09/22 documented as of this encounter
--- OUTSIDE RECORDS SUMMARY | 2025-02-20 16:26 | XMS_ITS | Clinical Summary ---
Author Organization [facility] Address [address] [place] [address] Care Team Providers Care Automatic Bow Maker Machine Tender Name Role Phone Pancho Villegas Primary Care Provid er Barber Arce MD Unavailable [phone] Allergies No known active allergies Medications FLUoxetine (PROZAC) 20 mg capsule 3 Active Olmesartan-hydr oCHLOROthiazide 20-12.5 mg per tablet 3 Active MAGNESIUM ORAL Magnesium 500 mg 1 tab QD Active Active ascorbic acid, vitamin C, (VITAMIN C) 500 mg tablet Take by mouth q 24 HR. Active calcium carbonate (OS-GAYLA 500) 500 mg calcium (1,250 mg) tablet Take by mouth q 12 HR. Active cholecalciferol (VITAMIN D3) 50 mcg (2,000 unit) tablet Take by mouth q 24 HR. Active CINNAMON Take by mouth q 24 HR. Active elderberry fruit (ELDERBERRY ORAL) Elderberry syrup Active Active ZINC ORAL Take by mouth. Activ e fish oil/borage/flax /om3,6,9 1 (OMEGA 3-6-9 ORAL) Take by mouth. Activ e Active Problems Problem Noted Date Diagnosed Date Hypertension 07/14/2022 Assessment & Plan (07/14/2022 2:51 PM EST): Assessment: stable on medications Family History Medical History Relation Comments COPD Brother Lung Cancer Father Diabetes Maternal Grandmother Heart Maternal Grandmother Heart Mother Ovarian cancer Sister Anesthesia Problems No Family History Relation Status Comments Brother Father Maternal Grandmother Mother Sister Alive Social History Tobacco Use Types Packs/Day Years Used Date Smoking Tobacco: Never Smokeless Tobacco: Never Alcohol Use Standard Drinks/Week Comments Not Currently 0 (1 standard drink = 0.6 oz pur e alcohol) Area Deprivation Index Answer Date Anish rded National Score (1-100), lower number is lower ri sk 53 11/05/2022 State Score (1-10), lower number is lower risk 3 11/05/2022 Data from: https://www.neighborhoodatlas.medicine.[facility].edu/. Last address used for calculation [address] 11/05/2022 Comments No Sex and Gender Information Value Date Recorded Sex Assigned at Not on file Legal Sex Female 2:22 PM EST Gender Identity Not on file Sexual Orientation Not on file Last Filed Vital Signs Vital Sign Reading Time Taken Comments Blood Pressure 101/65 07/13/2024 1:50 PM EST Pulse 86 07/13/2024 1:50 PM EST Temperature 36.6 C (97.8 F) 07/13/2024 1:50 PM EST Respiratory Rate 18 07/13/2024 1:50 PM EST Oxygen Saturation 97% 07/13/2024 1:50 PM EST Inhaled Oxygen Concentration - - Weight 95.4 kg (210 lb 5.1 oz) 07/13/2024 1:50 P M EST Height 162.6 cm (5' 4.02 ) 11/05/2022 10:19 AM E DT Body Mass Index 36.08 11/05/2022 10:19 AM EDT Plan of Treatment Upcoming Encounters Date Type Department Care Team (Late st Contact Info) Description 07/12/2025 2:15 PM EST Visit (SP) Office Gynecology Oncology [address] [place] [address] [place] [address] Amina Meeks MD [address] [place] [address] 1 year follow up Health Maintenance Due Date Last Done Comments Annual PCP Team Chronic Dise ase Visit 1971 Anxiety Screening 1971 Depression Screening 1971 Hepatitis C Screening 1971 DTaP,Tdap,Td Vaccine (1 - Tdap) 1972 CT Colonography 1998 Colonoscopy 1998 Fecal Occult Blood 1998 Sigmoidoscopy 1998 Shingrix Vaccine (1 of 2) 2003 Mammogram Screening 04/28/2024 04/28/2023, 04/28/2023, 11/18/2021, Additional history exists Advance Directive Discussion 06/29/2024 Medicare Advantage Annual We llness Visit 06/29/2024 Influenza Vaccine (#1) 2025 Diabetes Screening 07/11/2025 07/11/2022 Cologuard (FIT-DNA) 06/29/2027 06/29/2024, 06/18/2021, 06/06/2018 Colorectal Cancer Screening 06/29/2027 Lipid Screening 03/19/2028 03/19/2023 RSV Vaccine (1 - 1-dose 75+ series) 2028 Pneumococcal Vaccine: 50+ Completed 12/13/2019, Bone Density Screening Completed 06/30/2021 Procedures Procedure Name Priority Date/Time Associated Diagnosis Comments COMPREHENSIVE METABOLIC PANEL Routine 07/11/2022 8:21 AM EST ELISHA III (vulvar intraepithelial neoplasia III) from Last 3 Months or Most Recently Relevant to Health Maintenance Results * (ABNORMAL) COMP METABOLIC PANEL (07/11/2022 8:21 AM EST) Protein, Total 6.5 6.3 - 8.0 g/dL 07/11/2022 8:48 AM EST [facility] Albumin 4.1 3.9 - 4.9 g/dL 07/11/2022 8:48 AM EST [facility] Calcium, Total 8.9 8.5 - 10.2 mg/dL 07/11/2022 8:48 AM EST [facility] Bilirubin, Total 0.4 0.2 - 1.3 mg/dL 07/11/2022 8:48 AM EST [facility] Alkaline Phosphatase 65 34 - 123 U/L 07/11/2022 8:48 AM EST [facility] AST 15 13 - 35 U/L 07/11/2022 8:48 AM EST [facility] ALT 18 7 - 38 U/L 07/11/2022 8:48 AM [facility] Glucose 106(H) 74 - 99 mg/dL 07/11/2022 8:48 AM [facility] Comment: The [place] Diabetes Association (ADA) provides guidance for cutoff values for fasting glucose and random glucose. The ADA defines fasting as no caloric intake for at least 8 hours. Fasting plasma glucose results between 100 to 125 mg/dL indicate increased risk for diabetes (prediabetes). Fasting plasma glucose results greater than or equal to 126 mg/dL meet the criteria for diagnosis of diabetes. In the absence of unequivocal hyperglycemia, results should be confirmed by repeat testing. In a patient with classic symptoms of hyperglycemia or hyperglycemic crisis, random plasma glucose results greater than or equal to 200 mg/dL meet the criteria for diagnosis of diabetes. Reference: Standards of Medical Care in Diabetes 2016, [place] Diabetes Association. Diabetes Care. 2016.39(Suppl 1). BUN 24(H) 7 - 21 mg/dL 07/11/2022 8:48 AM [facility] Creatinine 0.70 0.58 - 0.96 mg/dL 07/11/2022 8:48 AM [facility] Sodium 137 136 - 144 mmol/L 07/11/2022 8:48 AM [facility] Potassium 4.2 3.7 - 5.1 mmol/L 07/11/2022 8:48 AM [facility] Chloride 105 97 - 105 mmol/L 07/11/2022 8:48 AM [facility] CO2 24 22 - 30 mmol/L 07/11/2022 8:48 AM [facility] Anion Gap 8(L) 9 - 18 mmol/L 07/11/2022 8:48 AM [facility] Estimated Glomerular Filtration Rate 94 >=60 mL/min/1. 73m 07/11/2022 8:48 AM [facility] Comment:Estimated Glomerular Filtration Rate (eGFR) is calculated using the 2020 CKD-EPI creatinine equation. This equation utilizes serum creatinine, sex, and age as parameters. The creatinine assay has traceable calibration to isotope dilution- mass spectrometry. Refer to KDIGO guidelines for clinical interpretation. In patients with unstable renal function, e.g. those with acute kidney injury, the eGFR may not accurately reflect actual GFR. Blood BLOOD SPECIMEN / Unknown Venipuncture / Unknown 07/11/2022 8:21 AM EST 07/11/2022 8:21 AM EST us Amina Meeks MD LABORATORY Final R esult [facility] [address] [place] [address] from Last 3 Months or Most Recently Relevant to Health Maintenance Insurance [facility] Care Teams Automatic Bow Maker Machine Tender Relationship Specialty Start Date End Date Pancho Villegas DO [address] [place] [address] PCP - General Family Medicine 07/14/22 Barber Arce MD [address] [place] [address] Agile Developer 09/09/22
--- OUTSIDE RECORDS SUMMARY | 2025-02-20 16:26 | XMS_ITS | Encounter Summary ---
Author Organization [facility] Address [facility] [place] [address] Care Team Providers Care Finger Grip Machine Operator Name Role Phone Pancho Villegas Primary Care Provid er Barber Arce MD Unavailable [phone] Source Comments In the event this information is protected by the Federal Confidentiality of Alcohol and Drug AbusePatient Records regulations: The Federal rules restrict any use of the information to criminally investigate or prosecute any alcohol or drug abuse patient.[facility] Encounter Details Date Type Department Care Team (Late st Contact Info) Description 05/30/2024 Patient Msg Gynecology Oncology [address] [place] [address] [place] [address] Amina Meeks MD [facility] [place] [address] Appointment Cancellation Request Social History [...] is lower risk 3 11/05/2022 Data from: https://www.neighborhoodatlas.[facility]/. Last address used for calculation [...] PM EST Visit (SP) Office Gynecology Oncology [address] [place] [address] [place] [address] Amina Meeks MD [address] [place] [address] 1 year follow up documented as of this encounter Visit Diagnoses Not on filedocumented in this encounter Care Teams Finger Grip Machine Operator Relationship Specialty Start Date End Date Pancho Villegas DO [address] [place] [address] PCP - General Family Medicine 07/14/22 Barber Arce MD [address] [place] [address] Manager Personal 09/09/22 documented as of this encounter
--- OUTSIDE RECORDS SUMMARY | 2025-02-20 16:26 | XMS_ITS | Encounter Summary ---
Author Organization [facility] Address [address] [place] [address] Care Team Providers Care Implementation Specialist Name Role Phone Pancho Villegas DO Unavailable [phone] Pancho Villegas DO Primary Care Provider + [phone] Pancho Villegas DO Unavailable [phone] Encounter Details Date Type Department Care Team (Late st Contact Info) Description 04/27/2023 Abstract [facility] [address] [place] [address] Pancho Villegas, DO [address] [place] [address] Social History Tobacco Use Types Packs/Day Years [...] often do you attend chur ch or christian services? More than 4 times per year 03/24/2023 Do you belong to any clubs o r organizations such as rastafarian groups, unions, fraternal or athletic groups, or [...] Recorded Patient Health Questionnaire-[address] [facility] Questionnaire Answer Date [...] place to sleep or slept in a fpc (including now)? No 03/24/2023 Comments Unknown Sex [...] suspected to have Coronavirus/COVID-19? No / Unsure 04/27/2023 1:56 PM EDT documented as of this encounter Plan of Treatment Upcoming Encounters Date Type Department Care Team (Late st Contact Info) Description 09/05/2025 3:25 PM EDT Office Visit [facility] [address] [place] [phone] Rosalia Pimentel, LAMINATION OPERATOR-SECONDARY CONNECTOR ARMATURE [address] [place] [address] documented as of this encounter Visit Diagnoses Not on filedocumented in this encounter Care Teams Implementation Specialist Relationship Specialty Start Date End Date Pancho Villegas DO [address] [place] [address] PCP - Devoted 06/29/22 06/28/24 Pancho Villegas DO [address] [place] [address] PCP - General Family Medicine 01/07/23 Pancho Villegas DO [address] [facility] [address] [place] [address] PCP - Medical [facility] 06/29/2406/28 documented as of this encounter
--- OUTSIDE RECORDS SUMMARY | 2025-02-20 16:26 | XMS_ITS | Encounter Summary ---
Author Organization [facility] Address [address] [place] [address] Care Team Providers Care Double Corner Cutter Name Role Phone Pancho Villegas DO Unavailable [phone] Pancho Villegas DO Primary Care Provider + [phone] Nelly Pancho Mauro DO Unavailable [phone] Encounter Details Date Type Department Care Team (Late st Contact Info) Description 04/14/2023 Abstract [facility] [address] [facility] [address] [place] [address] Ksenia Myers DPM [address] [facility] [address] [place] [address] Social History Tobacco Use Types Packs/Day Years [...] often do you attend chur ch or tenriism services? More than 4 times per year 03/24/2023 Do you belong to any clubs o r organizations such as hindu groups, unions, fraternal or athletic groups, or [...] Recorded Patient Health Questionnaire-2 Score 1 2023 [facility] Questionnaire Answer Date [...] place to sleep or slept in a residential (including now)? No 03/24/2023 Comments Unknown Sex [...] Dermatology [address] [place] [address] Rosalia Pimentel, RECRUITMENT DIRECTOR-PRECISION ASSEMBLY INSPECTOR [address] [place] [address] documented as of this encounter Visit Diagnoses Not on filedocumented in this encounter Care Teams Double Corner Cutter Relationship Specialty Start Date End Date Pancho Villegas DO [address] [place] [address] PCP - Devoted 06/29/22 06/28/24 Pancho Villegas DO [address] [place] [address] PCP - General Family Medicine 01/07/23 Pancho Villegas DO [address] [place] [address] PCP - Medical [facility] 06/29/2406/28 documented as of this encounter
--- OUTSIDE RECORDS SUMMARY | 2025-02-20 16:26 | XMS_ITS | Encounter Summary ---
Author Organization [facility] Address [address] [place] [address] Care Team Providers Care Cisco Certified Network Associate Name Role Phone Pancho Villegas Mauro DO Unavailable [phone] Pancho Villegas DO Primary Care Provider + [phone] Nelly Pancho Wade DO Unavailable [phone] Encounter Details Date Type Department Care Team (Late st Contact Info) Description 04/13/2023 Orders Only [facility] [address] [place] [address] Ksenia Myers DPM [address] [place] [address] Pre-op exam Social History Tobacco Use Types Packs/Day Years [...] often do you attend chur ch or yarsanism services? More than 4 times per year 03/24/2023 Do you belong to any clubs o r organizations such as oriental orthodox groups, unions, fraternal or athletic groups, or [...] Recorded Patient Health Questionnaire-2 Score 1 2023 [facility] Questionnaire Answer Date [...] place to sleep or slept in a group home (including now)? No 03/24/2023 Comments Unknown [...] Dermatology [address] [place] [address] Rosalia Pimentel, MORTGAGE LOAN OFFICER ORIGINATOR-PYROMETER TEMPERATURE REGULATOR [address] [place] [address] Scheduled Orders Name Type Priority Associated Diagnoses Orde r Schedule ECG 12 lead ECG Routine Pre-op exam Expected: 04/13/2023 (Approximate), Expires: 04/13/2024 documented as of this encounter Visit Diagnoses Diagnosis Pre-op exam documented in this encounter Care Teams Cisco Certified Network Associate Relationship Specialty Start Date End Date Pancho Villegas DO [address] [place] [address] PCP - Devoted 06/29/22 06/28/24 Pancho Villegas DO [address] [place] [address] PCP - General Family Medicine 01/07/23 Pnacho Villegas DO [address] [place] [address] PCP - Medical [facility] 06/29/2406/28 documented as of this encounter
[2025-02-20 16:27] VITALS: BP 113/61; PULSE 71; TEMP 36.6; O2SAT 95; BMI 34.3
--- NOTE | 2025-02-20 17:00 | XR_ITS ---
The [place] [id number] Patient Name: SAQIB GIBSON MRN: [id number] date: 1955 Sex: F Assigned Patient Location: ER Current Patient Location: Accession/Order Number: [id number] Exam Date: 02/20/2025 16:55 Report Date: 02/20/2025 17:03 At the request of: JEWELL LOPES DO Procedure: XR wrist RT min 3V XR wrist RT min 3V 02/20/2025 4:55 PM SIGNS AND SYMPTOMS: Right wrist pain after fall PROTOCOL: Frontal, lateral, and oblique radiographs of the right wrist COMPARISON: None FINDINGS: There is mild narrowing of the radiocarpal joint space. There is severe degenerative changes at the first carpal metacarpal junction. Moderate degenerative changes are noted between the scaphoid and trapezium. No acute displaced fracture. No significant soft tissue swelling. XR/XR wrist RT min 3V IMPRESSION: No fracture or dislocation. Significant degenerative changes are noted at the base of the thumb and between the scaphoid and trapezium. Lesser degrees of degenerative changes are noted along the radiocarpal joint space. Impression dictated by: Sukhwinder Ferreira M.D. 02/20/2025 5:03 PM Dictation Location: [place] [address] Electronically authenticated by: [id number] Y Date: 02/20/2025 17:03
--- NOTE | 2025-02-20 18:23 | ED.GENADUL1 ---
HPI HPI - General Adult General Chief complaint: Extremity Injury, Upper Stated complaint: Extremity Injury, Upper Time Seen by Provider: 02/20/25 18:17 Source: patient and family Mode of arrival: walk-in Limitations: no limitations History of Present Illness HPI narrative: Patient fell earlier today. Landed on hand has pain and bruising at right wrist. Patient denies any blood thinner use including aspirin Eliquis, Xarelto. Patient denies any additional injuries including headache, neck pain, back pain, chest pain, loss conscious, blurred vision. Patient denies any nauseousness vomiting. He states she slipped and fell while mopping a floor. Patient griselda amatory in emergency room. Onset (ago): day(s) (1) Location: Reports upper extremity Treatments prior to arrival: Reports none Related Data Allergies Allergy/AdvReac Type Severity Reaction Status Date / Time No Known Drug Allergies Allergy Verified 02/20/25 16:27 Review of Systems ROS Status of ROS 10 or more systems reviewed and unremarkable except as noted in history and below Constitutional Denies: fever or chills Eyes Denies: change in vision or blurry vision Ears, nose, mouth, and throat Denies: ear pain or nose bleeds Cardiovascular Denies: chest pain Respiratory Denies: shortness of breath Gastrointestinal Denies: abdominal pain, nausea or vomiting Genitourinary Denies: blood in urine Musculoskeletal Reports: extremity pain and other (Tenderness right wrist with bruising.); Denies: back pain or neck pain Integumentary/Breast Reports: other (Bruising overlying right wrist) Neurological Denies: headache Allergic/Immunologic Denies: hives PFSH PFSH Social History Little interest or pleasure in doing things: not at all Feeling down, depressed, or hopeless: not at all Exam Constitutional Vital Signs, click to edit/add: Last Vital Signs Temp 97.8 F 02/20/25 16:27 Pulse 71 02/20/25 16:27 Resp 16 02/20/25 16:27 BP 113/61 02/20/25 16:27 Pulse Ox 95 02/20/25 16:27 O2 Del Method Room Air 02/20/25 16:27 Documenting provider has reviewed patient's vital signs: yes Common normals: no apparent distress and oriented x3 HENMT Common normals: normocephalic Face and sinus: normal facial exam Nose: external nose normal, nares normal and other (Negative septal ecchymosis bilaterally negative epistaxis); septum not abnormal General ear: hearing not grossly impaired External ear: external ears normal External auditory canal: EACs normal Tympanic membrane: TMs normal bilaterally and other (Negative hemotympanums bilaterally) Mouth: oral and palatal mucosa normal Neck & C-Spine Common normals: full ROM and supple Cervical spine: cervical ROM normal; cervical ROM not abnormal, no pain with cervical ROM and no cervical spine tenderness Other: Negative cervical and paracervical tenderness including flexion, extension, bilateral rotation. Chest Common normals: palpation of chest normal GI Common normals: soft to palpation and non-tender Inspection: normal to inspection Auscultation: normoactive bowel sounds Common normals: no CVA tenderness Extremity General: normal exam except as noted Right upper extremity: wrist (Positive hematoma positive tenderness patient retains sensation range of mo) Other: C, T, L tenderness. Bilateral tenderness. Neuro Common normals: oriented x3, moves all extremities and no focal motor deficits Course Vital Signs Vital signs: Vital Signs Temperature 97.8 F 02/20/25 16:27 Pulse Rate 71 02/20/25 16:27 Respiratory Rate 16 02/20/25 16:27 Blood Pressure 113/61 02/20/25 16:27 Pulse Oximetry 95 02/20/25 16:27 Oxygen Delivery Method Room Air 02/20/25 16:27 Temperature 97.8 F 02/20/25 16:27 Pulse Rate 71 02/20/25 16:27 Respiratory Rate 16 02/20/25 16:27 Blood Pressure 113/61 02/20/25 16:27 Pulse Oximetry 95 02/20/25 16:27 Oxygen Delivery Method Room Air 02/20/25 16:27 Medical Decision Making [facility] Narrative Medical decision making narrative: Medical fall only injury is to her right wrist with bruising and pain with range of motion. She retains full range of motion. Patient retains sensation range of motion distally obtained negative fracture will add wrist brace follow-up with orthopedics patient has ibuprofen 800 at home we we will add Tylenol as directed on package for pain discomfort discussed plan of care with patient is agreeable plan of care wants discharged home. Differential Diagnosis Differential Diagnosis: Right wrist sprain, fracture, contusion Imaging Data X-ray negative per radiology report: Radiologist's impression: ITS Impressions Wrist X-Ray 02/20/25 17:00 IMPRESSION: No fracture or dislocation. Significant degenerative changes are noted at the base of the thumb and between the scaphoid and trapezium. Lesser degrees of degenerative changes are noted along the radiocarpal joint space. Impression dictated by: Sukhwinder Ferreira M.D. 02/20/2025 5:03 PM Dictation Location: [place] [address] Electronically authenticated by: [id number] Y Date: 02/20/2025 17:03 Discharge Plan Discharge Chief Complaint: Extremity Injury, Upper Clinical Impression: Sprain and strain of wrist Patient Disposition: Home, Self-Care Time of Disposition Decision: 18:31 Mode of Transportation: Private Vehicle Print Language: Nauruan Instructions: Wrist Injury (ED) Additional Instructions: Follow-up with orthopedics and primary care continue ibuprofen and Tyle as directed on packaging for pain or discomfort. Return to if any symptoms worsen or new symptoms well. Referrals: JORGE ALBERTO FINK [Primary Care Provider, Unknown] - 1 week Abraham Stewart MD [Physician, Orthopedics] - 1 week Discharge Date/Time: 02/20/25 18:43
== END 2025-02-20 18:43 | disposition home or self-care (01) ==
PROVIDERS: Emergency Provider Student in an Organized Health Care Education/Training Program; PCP Family Medicine
DX: S63.501A Unspecified sprain of right wrist, initial encounter (principal); S66.911A Strain of unspecified muscle, fascia and tendon at wrist and hand level, right hand, initial encounter; W01.0XXA Fall on same level from slipping, tripping and stumbling without subsequent striking against object, initial encounter; Y93.E5 Activity, floor mopping and cleaning
CPT/HCPCS: 73110; 99283

== ENCOUNTER 2025-04-30 17:58 | Emergency (ER) | payer MEDICARE, SELFPAY ==
--- OUTSIDE RECORDS SUMMARY | 2025-04-18 13:15 | XMS_ITS | Encounter Summary ---
Author Organization [facility] Address [address] [place] [address] Care Team Providers Care Turntable Worker Name Role Phone Jorge Alberto Villegas DO Primary Care Provider [phone] Jorge Alberto Villegas DO Unavailable [phone] Reason for Visit * ReasonCommentsUrinary Problem Encounter Details DateTypeDepartmentCare Team (Latest Contact Info)Tcqakvjzyys88/21/2025 2:15 PM EDTOffice Visit [facility] [address] [place] [phone] Jorge Alberto Villegas, DO [address] [place] [address] Encounter for weight management (Primary Dx); Urinary frequency; Dysuria; Acute cystitis with hematuria Social History Tobacco UseTypesPacks/DayYears UsedDateSmoking Tobacco: NeverSmokeless Tobacco: NeverAlcohol UseStandard Drinks/WeekCommentsNever0 (1 standard drink = 0.6 oz pure alcohol)caffeine intake:1-2 cups per day [id number] Health LiteracyAnswer Date RecordedHow often do you need to have someone help you when you read instructions, pamphlets, or other written material from your doctor or pharmacy? Never05/24/2024Humiliation, Afraid, Rape, and Kick questionnaireAnswerDate RecordedWithin the last year, have you been afraid of your partner or ex-partner?No03/24/2023Within the last year, have you been humiliated or emotionally abused in other ways by your partner or ex-partner?No09/ Within the last year, have you been kicked, hit, slapped, or otherwise physically hurt by your partner or ex-partner?No03/24/2023Within the last year, have you been raped or forced to have any kind of sexual activity by your part ner or ex-partner?No03/24/2023Social Connection and Isolation PanelAnswerDate RecordedIn a typical week, how many times do you talk on the phone with family, friends, or neighbors?Twice a week05/24/2024How often do you get together with friends or relatives?Once a week05/24/2024How often do you attend mosque or pentecostalism services?More than 4 times per year05/24/2024o you belong to any clubs or organizations such as mosque groups, unions, fraMakad Energy or athletic manuel ups, or school groups?Yes05/24/2024ttends Club or Organization MeetingsNot on file05/24/2024re you , , , , never , or living with a partner?Faglomy6505/24/2024UDIT-CAnswerDate RecordedQ1: How often do you have a drink containing alcohol?Never05/24/2024Q2: How many drinks containing alcohol do you have on a typical day when you are drinking?Patient does not drink05/24/2024Q3: How often do you have six or more drinks on one occasion?Never05/24/2024Overall Financial Resource Strain (CARDIA)AnswerDate RecordedHow hard is it for you to pay for the very basics like food, housing, medical care, and heating?Not very hard05/24/2024HQ-2AnswerDate RecordedPatient Health Questionnaire-2 [id number] fork hospital [place] of Occupational Health - Occupational Stress QuestionnaireAnswerDate RecordedDo you feel stress - tense, restless, nervous, or anxious, or unable to sleep at night because your mind is troubled all the time - these days?Only a jjttis7705/24/2024Exercise Vital SignAnswerDate RecordedOn average, how many days per week do you engage in moderate to strenuous exercise (like a brisk walk)?3 days05/24/2024On average, how many minutes do you engage in exercise at this level?30 min05/24/2024Hunger Vital SignAnswerDate RecordedWithin the past 12 months, you worried that your food would run out before you got the money to buymore.Patient declined 05/24/2024Within the past 12 months, the food you bought just didn't last and you didn't have money to get more.Never true05/24/2024RAPARE - Transportation AnswerDate RecordedIn the past 12 months, has lack of transportation kept you from medical appointments or from getting medications?No05/24/2024In the past 12 months, has lack of transportation kept you from meetings, work, or from getting things needed for daily living?No05/24/2024Housing Stability Vital SignAnswer Date RecordedIn the last 12 months, was there a time when you were not able to pay the mortgage or rent on time?No03/24/2023In the last 12 months, how many places have you lived?In the last 12 months, was there a time when you did not have a steady place to sleep or slept in [facility] (including now)?No 03/24/2023Housing Stability Vital SignAnswerDate RecordedIn the last 12 months, was there a time when you were not able to pay the mortgage or rent on time?No 05/24/2024Number of Times Moved in the Last YearNot on file05/24/2024t any time in the past 12 months, were you homeless or living in a prison (including now)? No05/24/2024CommentsUnknownSex and Gender InformationValueDate Recorded Sex Assigned at BirthNot on fileLegal BaqLenukq04/15/2023 8:27 PM EDTGender IdentityNot on fileSexual OrientationNot on filedocumented as of this encounter Last Filed Vital Signs Vital SignReadingTime TakenCommentsBlood Qtjxwgxk670/6804/18/2025 2:14 PM EDT Ghetl518604/18/2025 2:14 PM AVORqczsnseaul49.3 ??C (97.3 ??F)04/18/2025 2:14 PM EDTRespiratory Rate--Oxygen Oyqnngvlzn60%04/18/2025 2:14 PM EDTInhaled Oxygen Concentration--Weight--Voixuj788.8 cm (5' 2.5 )04/18/2025 2:14 PM EDTBody Mass Index--documented in this encounter Progress Notes * Jorge Alberto Villegas, DO - 04/18/2025 2:15 PM EDT Images from the original note were not included. Jessica Carranza is a 70 y.o. female presents with chief complaint of Chief Complaint Patient presents with Urinary Problem ?Quick Links Last Note in Specialty Snapshot Edit RFV/CC Edit Screenings Current Meds ?Quick Links Full Problem List Cardiology Hypertension ?Quick Links Add Vitals Timeline (Adult) Labs Imaging Results Review Trend Vitals ?? Avoid pulling in long tables of results. Comment on relevant results to support your medical decision making. Diagnoses and all orders for this visit: Encounter for weight management - Tirzepatide-Weight Management (Zepbound) 10 MG/0.5ML solution; Inject 10 mg under the skin 1 (one) time per week Urinary frequency - POCT urinalysis dipstick manually resulted - Urine culture (clean catch); Future - phenazopyridine (Pyridium) 200 MG tablet; Take 1 tablet (200 mg) by mouth 3 (three) times a day as needed for bladder spasms for up to 2 days Dysuria - POCT urinalysis dipstick manually resulted - Urine culture (clean catch); Future - phenazopyridine (Pyridium) 200 MG tablet; Take 1 tablet (200 mg) by mouth 3 (three) times a day as needed for bladder spasms for up to 2 days Acute cystitis with hematuria - ciprofloxacin (Cipro) 250 MG tablet; Take 1 tablet (250 mg) by mouth in the morning and 1 tablet (250 mg) in the evening. Do all this for 7 days. Assessment & Plan 1. Dysuria: She presented with dysuria for the last 24 hours. She recently had a UTI in November 2024, which was treated with antibiotics. A different antibiotic will be prescribed this time to ensure effectiveness.She is advised to try cranberry juice or pills as there is some evidence that it can help prevent frequent UTIs. Cipro 250 mg twice a day for 7 days will be prescribed. Additionally, a medication to alleviate urinary pressure will be sent to the pharmacy. 2. Weight management: She has been struggling with weight loss despite being active and taking supplements. Zepbound (Mounjaro) will be prescribed at a 10 mg dose, but she is advised to start with 0.25 mg (equivalent to 5mg) for the first two months. If well-tolerated, the dose can be increased. The prescription will be sent to her mail-order pharmacy, and she will need to register on the website to purchase it. I spent a total of 30 minutes or more a date of the service which included preparing to see the patient,ybaz-ph-ghgc patient care including obtaining/reviewing history and performing appropriate medical examination, completing clinical documentation and coordination of care. JORGE ALBERTO VILLEGAS D.O. This note was entered using AVA.aiot. Grammatical and dictation errors maybe present in translation *I have reviewed and reconciled the history and medication list with the patient today* HPI History of Present Illness The patient is a 70-year-old female who presents for dysuria for the last 24 hours. She recently had a urinary tract infection (UTI) in 11/2024. She reports experiencing urinary tract infections infrequently. The initial antibiotic prescribed for the previous UTI was ineffective, but a subsequent one proved beneficial. A few weeks ago, she experienced severe diarrhea, which she managed by promptly rinsing the affected area. She mentions that her current symptoms began the day after sexual intercourse. She reports no fever or chills but does feel fatigued. There have been no changes in her usual aches and pains or back pain. She expresses concern about potential bladder prolapse and is interested in trying cranberry pills as a preventive measure against future UTIs. She is requesting a medication to alleviate the pressure. She is seeking advice on weight loss strategies. Despite losing 8 pounds with the help of samples provided, she is unsure of her current weight loss progress. 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 She has tried using patches for weight loss but found them ineffective as they tend to fall off. She takes several supplements and suspects they may be contributing to weight gain due to their caloric content. She reports arm pain and hand issues, including a fall that resulted in bruising and required a brace. Social History: Occupation: House cleaning Sexual Practices: Recent sexual intercourse C/o UTI symptoms which started yesterday Symptoms: Pressure, burning with urination, frequency, fatigue. Has not been using Cranberry OTC Has been trying to drink more water- not drinking enough. Depression: Not at risk (11/29/2024) PHQ-2 PHQ-2 Score: 0 Discontinued Medications No medications on file SUBJECTIVE: Current Medications/Allergies: ROS Current Medications[1] Allergies[2] Review of Systems Constitutional: Negative for fatigue. HENT: Negative for rhinorrhea. Respiratory: Negative for cough and shortness of breath. Cardiovascular: Negative for chest pain. Gastrointestinal: Positive for abdominal pain. Negative for abdominal distention. Genitourinary: Positive for dysuria and urgency. Musculoskeletal: Positive for arthralgias. Skin: Negative for rash. Neurological: Negative for dizziness. All other systems reviewed and are negative. Past Medical/Sx History: Social/FHx Medical History[3] Surgical History[4] Social History[5] Family History[6] OBJECTIVE: 04/18/2025 2:14 PM 11/29/2024 1:34 PM 06/16/2024 1:23 PM 02/25/2024 2:28 PM 12/23/2023 3:41 PM 2023 9:17 AM 07/08/2022 12:00 PM Vitals BMI 36.36 kg/m2 36.36 kg/m2 36.7 kg/m2 36.1 kg/m2 37.38 kg/m2 36.31 kg/m2 36.49 kg/m2 BSA (m2) 2.01 m2 2.01 m2 2.04 m2 2.03 m2 2.06 m2 2.03 m2 2.04 m2 Systolic 110 110 126 110 120 120 Diastolic 68 68 68 70 70 74 Heart Rate 72 80 70 90 86 75 SpO2 98 % 98 % 96 % 97 % 96 % 97 % Temp 97.3 ??F 98.2 ??F 97.1 ??F 98.4 ??F 98.3 ??F 98 ??F Height (in) 5' 2.5 5' 2.5 5' 3 5' 3 5' 3 5' 3 5' 3 Weight (lb) 202 207.2 203.8 211 205 Visit Report Report Report Report Report Report Report Physical Exam General Appearance: Alert and oriented. Pleasant affect. No acute distress. Well nourished. Head: Atraumatic normal cephalic. No masses or swelling. Eyes: EOMI, sclera white, conjunctiva clear, no injection. Pupils relatively equal size. Ears: External ears normal. No signs or trauma or infection. Nose: Nasal mucosal pink and moist, No discharge or congestion. Normal appearance of the soft tissue of the nose. Throat: Lips moist, Teeth and gums in good condition. Neck: Supple, no obvious range of motion deficits, no swelling or pain. Respiratory: Clear to auscultation bilaterally, no wheezes, rhonchi or crackles. Good breaths sounds throughout lung fallon. Cardiovascular: Regular rate and rhythm, no murmurs. Normal S1, S2. Gastrointestinal: Soft, no tenderness, no distention, no masses Musculoskeletal/Extremities: No gross deformities or malalignment, normal ambulation, no swelling, no deformities. Skin: Warm and dry, no rashes. Neurological: Cranial nerves II-VII grossly intact, no gross neurologic abnormalities or focal defects. Psychiatric: Cooperative, pleasant, no signs of major mood disorder. [1] Current Outpatient Medications Medication Sig Dispense Refill ascorbic acid (Vitamin C) 500 MG tablet Take by mouth 1 (one) time each day at the same time. calcium carbonate (Os-Mauricio) 1250 (500 Ca) MG tablet Take by mouth every 12 (twelve) hours. cholecalciferol (Vitamin D-3) 50 MCG (2000 UT) tablet Take by mouth 1 (one) time each day at the same time. CINNAMON PO Take by mouth 1 (one) time each day at the same time. Elderberry 500 MG capsule 1 capsule. FLUoxetine (PROzac) 20 MG capsule TAKE 1 CAPSULE DAILY 90 capsule 3 ibuprofen 800 MG tablet TAKE 1 TABLET BY MOUTH IN THE MORNING, NOON AND EVENING WITH MEALS 90 tablet 2 Magnesium 500 MG capsule 1 (one) time each day at the same time. olmesartan-hydroCHLOROthiazide (BENIcar HCT) 20-12.5 MG tablet TAKE 1 TABLET DAILY 90 tablet 3 [place]-3 Fatty Acids (Fish Oil) 1000 MG capsule delayed-release Take by mouth. SILVER EX Silver Tretinoin (Altreno) 0.05 % lotion Apply a thin layer topically to the face at bedtime. 45 g 6 Turmeric (Curcumin 95) 500 MG capsule as directed Orally zinc 50 MG tablet Take by mouth. ciprofloxacin (Cipro) 250 MG tablet Take 1 tablet (250 mg) by mouth in the morning and 1 tablet (250 mg) in the evening. Do all this for 7 days. 14 tablet 0 phenazopyridine (Pyridium) 200 MG tablet Take 1 tablet (200 mg) by mouth 3 (three) times a day as needed for bladder spasms for up to 2 days 6 tablet 0 Tirzepatide-Weight Management (Zepbound) 10 MG/0.5ML solution Inject 10 mg under the skin 1 (one) time per week 2 mL 2 No current facility-administered medications for this visit. [2] No Known Allergies [3] Past Medical History: Diagnosis Date COVID Female cystocele 05/08/2020 Genital warts 05/08/2020 Hypertension Lesion of female perineum Psychophysiological insomnia 2023 Right Achilles tendinitis 2023 [4] Past Surgical History: Procedure Laterality Date ACHILLES TENDON SURGERY 2021 with right bone spur removal ACHILLES TENDON SURGERY 05/01/2023 BUNIONECTOMY 1996 CATARACT EXTRACTION Bilateral COLOGUARD 06/18/2021 negative HYSTERECTOMY 1992 VAGINA RECONSTRUCTION SURGERY 2021 [5] Social History Tobacco Use Smoking status: Never Smokeless tobacco: Never Vaping Use Vaping status: Never Used Substance Use Topics Alcohol use: Never Comment: caffeine intake:1-2 cups per day coffee [6] Family History Problem Relation Name Age of Onset Hyperlipidemia Mother Heart disease Mother Hypertension Mother Cancer Father Ovarian cancer Sister 5 documented in this encounter Plan of Treatment DateTypeDepartmentCare Team (Latest Contact Info)Pcxtiqncqbj94/10/2026 3:30 PM EDTOffice Visit [facility] [place] [facility] [address] [place] [phone] Rosalia Pimentel, TOWER HAND-BENZENE STILL UTILITY OPERATOR [address] [place] [address] documented as of this encounter Procedures Procedure NamePriorityDate/TimeAssociated DiagnosisCommentsPOCT URINALYSIS RFKFCUIACkcpref80/21/2025 2:30 PM EDT Urinary frequency Dysuria URINE CULTURE CLEAN CATCH UDNQIYRalvcjl10/21/2025 12:00 AM EDT CULTURE, URINE, BIGHLDKFfofejd82/21/2025 12:00 AM EDT Urinary frequency Dysuria documented in this encounter Results * (ABNORMAL) POCT urinalysis dipstick manually resulted (04/18/2025 2:30 PM EDT) ComponentValueRef RangeTest MethodAnalysis TimePerformed AtPathologist SignatureColor, UAYellowClarity, UAClearGlucose, UANegativeNegative - 2000(110) ++++ mg/dLBilirubin, UANegativeNegative - 4(70) +++ mg/dLKetones, UA NegativeNegative - 160(16) ++++ mg/dLSpec Grav, UA1.0201 - 1.03Blood, UA PositiveNegative - 50 Rich/mcLComment:tracepH, UA7.05 - 9Protein, UANegative Negative - 2000(20) ++++ mg/dLUrobilinogen, UA0.20.2 - 12 mg/dLLeukocytes, UA PositiveNegative - 500+++ Aby/mcLComment:moderateNitrite, UANegativeNegative - PositiveSpecimen (Source)Anatomical Location / LateralityCollection Method / VolumeCollection TimeReceived VttjCynxb41/21/2025 2:30 PM EDT Narrative Authorizing ProviderResult TypeResult StatusMatthew C Petznick DOPOINT OF CARE TEST ENTER/EDIT ORDERABLESFinal Result * Urine Culture Clean Catch Reflex (04/18/2025 12:00 AM EDT)ComponentValueRef RangeTest MethodAnalysis TimePerformed AtPathologist SignatureUr Cult 1Comment [facility]ABCORPComment: Culture shows less than 10,000 colony forming units of bacteria per milliliter of urine. This colony count is not generally considered to be clinically significant. Specimen (Source)Anatomical Location / LateralityCollection Method / Volume Collection TimeReceived Time Narrative [facility] - 04/20/2025 6:07 AM EDT Performed at: 01 - [facility] ??[id number] Internal Combustion Engine Inspector: Michele Carvalho PhD, Phone: ??[phone] Authorizing ProviderResult TypeResult StatusMatthew C Petznick DOLAB URINE ORDERABLESFinal ResultPerforming OrganizationAddressCity/State/ZIP CodePhone Number [facility] * Urine culture (clean catch) (04/18/2025 12:00 AM EDT)ComponentValueRef Range Test MethodAnalysis TimePerformed AtPathologist SignatureUrine Cult Rt Status Final reportLABCORPSpecimen (Source)Anatomical Location / LateralityCollection Method / VolumeCollection TimeReceived TimeUrineUrine specimen obtained by clean catch procedure / Lhwqwjh72omment:Urine, Clean Catch Pr Narrative [facility] - 04/20/2025 6:07 AM EDT Performed at: 01 - [facility] [address] ??[id number] Internal Combustion Engine Inspector: Michele Carvalho PhD, Phone: ??[phone] Authorizing ProviderResult TypeResult StatusMatthew C Petznick DOLAB MICROBIOLOGY - GENERAL ORDERABLESFinal ResultPerforming OrganizationAddress City/State/ZIP CodePhone Number [facility] documented in this encounter Visit Diagnoses Diagnosis Encounter for weight management- Primary Urinary frequency Dysuria Acute cystitis with hematuria documented in this encounter Care Teams Team MemberRelationshipSpecialtyStart DateEnd Date Jorge Alberto Villegas DO [address] [place] [address] PCP - GeneralFamily Medicine01/07/23 Jorge Alberto Villegas DO [address] [place] [address] PCP - Medical [place]06/29/2511documented as of this encounter
[2025-04-30 18:04] VITALS: BP 163/97; PULSE 76; TEMP 36.8; O2SAT 97; BMI 34.3
--- OUTSIDE RECORDS SUMMARY | 2025-04-30 18:06 | XMS_ITS | Encounter Summary ---
Author Organization [facility] Address [address] [place] [address] Care Team Providers Care Merchandise Stocker Name Role Phone Pancho Villegas DO Primary Care Provider [phone] Pancho Villegas DO Unavailable [phone] Reason for Visit * ReasonOnset WsrzNlorpoqfFfmxbdz59/23/2025 Encounter Details DateTypeDepartmentCare Team (Latest Contact Info)Vdbtxdcoqwx65/23/2025Results Follow-Up [facility] [address] [place] [phone] Pancho Villegas, DO [address] [place] [address] Urine culture (clean catch), Urine Culture Clean Catch Reflex Social History Tobacco UseTypesPacks/DayYears UsedDateSmoking Tobacco: NeverSmokeless Tobacco: NeverAlcohol UseStandard Drinks/WeekCommentsNever0 (1 standard drink = 0.6 oz pure alcohol)caffeine intake:1-2 cups per day johwpzS1829 Health LiteracyAnswer Date RecordedHow often do you need to have someone help you when you read instructions, pamphlets, or other written material from your doctor or pharmacy? Never05/24/2024Humiliation, Afraid, Rape, and Kick questionnaireAnswerDate RecordedWithin the last year, have you been afraid of your partner or ex-partner?No03/24/2023Within the last year, have you been humiliated or emotionally abused in other ways by your partner or ex-partner?No03/24/2023 Within the last year, have you been kicked, hit, slapped, or otherwise physically hurt by your partner or ex-partner?No03/24/2023Within the last year, have you been raped or forced to have any kind of sexual activity by your part ner or ex-partner?03/24/2023Social Connection and Isolation PanelAnswerDate RecordedIn a typical week, how many times do you talk on the phone with family, friends, or neighbors?Twice a week05/24/2024How often do you get together with friends or relatives?Once a week05/24/2024How often do you attend spiritism or methodist services?More than 4 times per year05/24/2024o you belong to any clubs or organizations such as spiritism groups, unions, fraternal or athletic manuel ups, or school groups?Yes05/24/2024ttends Club or Organization MeetingsNot on file05/24/2024re you , , , , never , or living with a partner?Bpbfioj7605/24/2024UDIT-CAnswerDate RecordedQ1: How often do you have a [...] and heating?Not very hard05/24/2024HQ-2AnswerDate RecordedPatient Health Questionnaire-2 Uocwu053F[facility] [place] of Occupational Health - Occupational Stress QuestionnaireAnswerDate RecordedDo you feel stress - tense, restless, nervous, or anxious, or unable to sleep at night because your mind is troubled all the time - these days?Only a fxjuwj7305/24/2024Exercise Vital SignAnswerDate RecordedOn average, how many days [...] steady place to sleep or slept in [facility] (including now)?No 03/24/2023Housing Stability Vital SignAnswerDate RecordedIn the last 12 months, was there a time when you were not able to pay the mortgage or rent on time?No 05/24/2024Number of Times Moved in the Last YearNot on file05/24/2024t any time in the past 12 months, were you homeless or living in a alf (including now)? No05/24/2024CommentsUnknownSex and Gender InformationValueDate Recorded Sex Assigned at BirthNot on fileLegal PefEevmaf69/15/2023 8:27 PM EDTGender IdentityNot on fileSexual OrientationNot on filedocumented as of this encounter Miscellaneous Notes * Telephone Encounter - Jaz Osborn LPN - 04/20/2025 11:37 AM EDT P/C to pt informing her of results and recommendation to callback if symptoms continue. Pt voiced understanding * Telephone Encounter - Jaz Osborn LPN - 04/20/2025 11:37 AM EDT ----- Message from Dr. Pancho Villegas sent at 04/20/2025 8:31 AM EDT ----- Minimal growth in urine. Abx cover infection ----- Message ----- From: [facility], [facility] Lab Results In Sent: 04/20/2025 6:07 AM EDT To: Pancho Villegas DO documented in this encounter Plan of Treatment DateTypeDepartmentCare Team (Latest Contact Info)Ovphhnryzea74/10/2026 3:30 PM EDTOffice Visit [facility] [address] [place] [phone] Rosalia Pimentel, RAT BREEDER-TOW TRUCK DISPATCHER [address] [place] [address] documented as of this encounter Visit Diagnoses Not on filedocumented in this encounter Care Teams Team MemberRelationshipSpecialtyStart DateEnd Date Pancho Villegas DO [address] [place] [address] PCP - GeneralFamily Medicine01/07/23 Pancho Villegas DO [address] [place] [address] PCP - Medical [place] MA06/29/2511documented as of this encounter
--- OUTSIDE RECORDS SUMMARY | 2025-04-30 18:06 | XMS_ITS | Encounter Summary ---
Author Organization [facility] Address [address] [place] [address] Care Team Providers Care Racking Technician Name Role Phone Pancho Villegas DO Primary Care Provider [phone] Pancho Villegas DO Unavailable [phone] Encounter Details DateTypeDepartmentCare Team (Latest Contact Info)Vmwmoojcwbz88/21/2025amboo flowsheet [facility] [address] [place] [phone] Pancho Villegas, DO [address] [place] [address] Social History Tobacco UseTypesPacks/DayYears UsedDateSmoking Tobacco: NeverSmokeless Tobacco: NeverAlcohol UseStandard Drinks/WeekCommentsNever0 (1 standard drink = 0.6 oz pure alcohol)caffeine intake:1-2 cups per day [id number] Health LiteracyAnswer Date RecordedHow often do you [...] relatives?Once a week05/24/2024How often do you attend baptist or mu-ism services?More than 4 times per year05/24/2024o you belong to any clubs or organizations such as baptist groups, unions, [place] or athletic manuel ups, or school groups?Yes05/24/2024ttends Club or Organization MeetingsNot on file05/24/2024re you , , , , never , or living with a partner?Pglkmdd0005/24/2024UDIT-CAnswerDate RecordedQ1: How often do you have a [...] and heating?Not very hard05/24/2024HQ-2AnswerDate RecordedPatient Health Questionnaire-2 Lhvhr056[facility] [place] of Occupational Health - Occupational Stress QuestionnaireAnswerDate RecordedDo you feel stress - tense, restless, nervous, or anxious, or unable to sleep at night because your mind is troubled all the time - these days?Only a zqrkmh3605/24/2024Exercise Vital SignAnswerDate RecordedOn average, how many days [...] steady place to sleep or slept in [place] (including now)?No 03/24/2023Housing Stability Vital SignAnswerDate RecordedIn [...] Recorded Sex Assigned at BirthNot on fileLegal HdrAkpcnr45/15/2023 8:27 PM EDTGender IdentityNot on fileSexual OrientationNot on filedocumented as of this encounter Plan of Treatment DateTypeDepartmentCare Team (Latest Contact Info)Plvysqhrzcn95/10/2026 3:30 PM EDTOffice Visit [facility] [address] [place] [phone] Rosalia Pimentel, INTERIOR PAINTER-SMEARER [address] [place] [address] documented as of this encounter Visit Diagnoses Not on filedocumented in this encounter Care Teams Team MemberRelationshipSpecialtyStart DateEnd Date Pancho Villegas DO [address] [place] [address] [facility] Pancho Villegas DO [address] [place] [address] PCP - Medical [place]06/29/2511documented as of this encounter
--- OUTSIDE RECORDS SUMMARY | 2025-04-30 18:06 | XMS_ITS | Encounter Summary ---
Author Organization [facility] Address [address] [place] [address] Care Team Providers Care Analytical Scientist Name Role Phone Pancho Villegas DO Primary Care Provider [phone] WanPancho enriquez Mauro DO Unavailable [phone] Encounter Details DateTypeDepartmentCare Team (Latest Contact Info)Wbuuoqxdpmq71/21/2025Travel Social History Tobacco UseTypesPacks/DayYears UsedDateSmoking Tobacco: NeverSmokeless Tobacco: NeverAlcohol UseStandard Drinks/WeekCommentsNever0 (1 standard drink = 0.6 oz pure alcohol)caffeine intake:1-2 cups per day [id number] Health LiteracyAnswer Date RecordedHow often do you [...] relatives?Once a week05/24/2024How often do you attend gnosticist or christian services?More than 4 times per year05/24/2024o you belong to any clubs or organizations such as gnosticist groups, unions, fraternal or athletic manuel ups, or school groups?Yes05/24/2024ttends Club or Organization MeetingsNot on file05/24/2024re you , , , , never , or living with a partner?Mqpuylr2905/24/2024UDIT-CAnswerDate RecordedQ1: How often do you have a [...] and heating?Not very hard05/24/2024HQ-2AnswerDate RecordedPatient Health Questionnaire-2 Ojkwa050[facility] [place] of Occupational Health - Occupational Stress QuestionnaireAnswerDate RecordedDo you feel stress - tense, restless, nervous, or anxious, or unable to sleep at night because your mind is troubled all the time - these days?Only a nwuwon7405/24/2024Exercise Vital SignAnswerDate RecordedOn average, how many days [...] steady place to sleep or slept in ashelter (including now)?No 03/24/2023Housing Stability Vital SignAnswerDate RecordedIn the last 12 months, was there a time when you were not able to pay the mortgage or rent on time?No 05/24/2024Number of Times Moved in the Last YearNot on file05/24/2024t any time in the past 12 months, were you homeless or living in a snf (including now)? No05/24/2024CommentsUnknownSex and Gender InformationValueDate Recorded Sex Assigned at BirthNot on fileLegal CqnEnqmjo36/15/2023 8:27 PM EDTGender IdentityNot on fileSexual OrientationNot on filedocumented as of this encounter Plan of Treatment DateTypeDepartmentCare Team (Latest Contact Info)Gtzzjqcblky58/10/2026 3:30 PM EDTOffice Visit [facility] [place] [facility] [address] [place] [address] Rosalia Pimentel, SCIENTIFIC ASSOCIATE-ECOLOGICAL MODELER [address] [place] [address] documented as of this encounter Visit Diagnoses Not on filedocumented in this encounter Care Teams Team MemberRelationshipSpecialtyStart DateEnd Date Pancho Villegas, DO [address] [place] [address] PCP - GeneralFamily Medicine01/07/23 Pancho Villegas DO [address] [facility] [address] [place] [id number] PCP - Medical [place]06/29/2511documented as of this encounter
--- OUTSIDE RECORDS SUMMARY | 2025-04-30 18:06 | XMS_ITS | Encounter Summary ---
Author Organization [facility] Address [address] [place] [address] [place] [place] [address] Care Team Providers Care Incident Response Engineer Name Role Phone Pancho Villegas DO Primary Care Provider [phone] Pancho Villegas DO Unavailable [phone] Encounter Details DateTypeDepartmentCare Team (Latest Contact Info)Qzuumundovs23/20/2025Telephone [facility] [address] [place] [address] Pancho Villegas, DO [address] [place] [address] Social History Tobacco UseTypesPacks/DayYears UsedDateSmoking Tobacco: NeverSmokeless Tobacco: NeverAlcohol UseStandard Drinks/WeekCommentsNever0 (1 standard drink = 0.6 oz pure alcohol)caffeine intake:1-2 cups per day [id number] Health LiteracyAnswer Date RecordedHow often do you [...] relatives?Once a week05/24/2024How often do you attend temple or quaker services?More than 4 times per year05/24/2024o you belong to any clubs or organizations such as temple groups, unions, fraVino [place]o or athletic manuel ups, or school groups?Yes05/24/2024ttends Club or Organization MeetingsNot on file05/24/2024re you , , , , never , or living with a partner?Ylbbyzo2405/24/2024UDIT-CAnswerDate RecordedQ1: How often do you have a [...] and heating?Not very hard05/24/2024HQ-2AnswerDate RecordedPatient Health Questionnaire-2 [id number] mountain hospital, inc. [place] of Occupational Health - Occupational Stress QuestionnaireAnswerDate RecordedDo you feel stress - tense, restless, nervous, or anxious, or unable to sleep at night because your mind is troubled all the time - these days?Only a lwxwym4705/24/2024Exercise Vital SignAnswerDate RecordedOn average, how many days [...] steady place to sleep or [facility] in [facility] ([facility])?No 03/24/2023Housing Stability Vital SignAnswerDate RecordedIn the last 12 months, was there a time when you were not able to pay the mortgage or rent on time?No 05/24/2024Number of Times Moved in the Last YearNot on file05/24/2024t any time in the past 12 months, were you homeless or living in a long term (including now)? No05/24/2024CommentsUnknownSex and Gender InformationValueDate Recorded Sex Assigned at BirthNot on fileLegal EtxPzczoj45/15/2023 8:27 PM EDTGender IdentityNot on fileSexual OrientationNot on filedocumented as of this encounter Miscellaneous Notes * Telephone Encounter - Joellen Casarez - 04/17/2025 1:20 PM EDT Spoke with Pt scheduled appt for tomorrow 04/18 @ 2:15. * Telephone Encounter - Joellen Casarez - 04/17/2025 9:33 AM EDT Pt called with a UTI again, Pt wanted to know if Dr. Randall could send in other prescription in for this to [facility] in [place]. documented in this encounter Plan of Treatment DateTypeDepartmentCare Team (Latest Contact Info)Vawiaupzwlz88/10/2026 3:30 PM EDTOffice Visit [facility] [address] [place] [address] Rosalia Pimentel, DRUPAL DEVELOPER-METER INSTALLER AND REMOVER [address] [place] [address] documented as of this encounter Visit Diagnoses Not on filedocumented in this encounter Care Teams Team MemberRelationshipSpecialtyStart DateEnd Date Pancho Villegas DO [address] [place] [address] PCP - GeneralFamily Medicine01/07/23 Pancho Villegas DO [address] [place] [address] PCP - Medical [place]06/29/2511documented as of this encounter
--- OUTSIDE RECORDS SUMMARY | 2025-04-30 18:07 | XMS_ITS | Clinical Summary ---
Author Organization [facility] Address [address] [place] [address] Care Team Providers Care Tongue And Quarter Stitcher Name Role Phone Ashley Villegasew Mauro DO Primary Care Provider [phone] Pancho Villegas DO Unavailable [phone] Allergies No known active allergies Medications MedicationSigDispense QuantityRefillsLast FilledStart DateEnd DateStatus CINNAMON PO Take by mouth 1 (one) time each day at the same time.Active cholecalciferol (Vitamin D-3) 50 MCG (2000 UT) tablet Take by mouth 1 (one) time each day at the same time.Active Turmeric (Curcumin 95) 500 MG capsule as directed OrallyActive calcium carbonate (Os-Mauricio) 1250 (500 Ca) MG tablet Take by mouth every 12 (twelve) hours.Active ascorbic acid (Vitamin C) 500 MG tablet Take by mouth 1 (one) time each day at the same time.Active SILVER EX SilverActive zinc 50 MG tablet Take by mouth.Active Magnesium 500 MG capsule 1 (one) time each day at the same time.Active Elderberry 500 MG capsule 1 capsule.Active [place]-3 Fatty Acids (Fish Oil) 1000 MG capsule delayed-release Take by mouth.Active Tretinoin (Altreno) 0.05 % lotion Indications:RhytidesApply a thin layer topically to the face at bedtime. 45 g 6055Active ibuprofen 800 MG tablet Indications:Encounter for follow-up examination after completed treatment for conditions other than malignant neoplasmTAKE 1 TABLET BY MOUTH IN THE MORNING, NOON AND EVENING WITH MEALS 90 tablet 208/5Active olmesartan-hydroCHLOROthiazide (BENIcar HCT) 20-12.5 MG tablet Indications:Essential hypertensionTAKE 1 TABLET DAILY 90 tablet 310//5Active FLUoxetine (PROzac) 20 MG capsule Indications:AnxietyTAKE 1 CAPSULE DAILY 90 capsule 5Active Tirzepatide-Weight Management (Zepbound) 10 MG/0.5ML solution Indications:Encounter for weight managementInject 10 mg under the skin 1 (one) time per week 2 mL 5Active phenazopyridine (Pyridium) 200 MG tablet Indications:Urinary frequency,DysuriaTAKE 1 TABLET BY MOUTH 3 TIMES A DAY (MORNING,NOON, & EVENING) WITH MEALS FOR 2 DAYS 6 tablet 5Active FLUoxetine (PROzac) 20 MG capsule Indications:AnxietyTake 1 capsule (20 mg) by mouth Daily 90 capsule Discontinued olmesartan-hydroCHLOROthiazide (BENIcar HCT) 20-12.5 MG tablet Indications:Essential hypertensionTake 1 tablet by mouth Daily 90 tablet Discontinued ciprofloxacin (Cipro) 250 MG tablet Indications:Acute cystitis with hematuriaTake 1 tablet (250 mg) by mouth in the morning and 1 tablet (250 mg) in the evening. Do all this for 7 days. 14 tablet /Expired phenazopyridine (Pyridium) 200 MG tablet Indications:Urinary frequency,DysuriaTake 1 tablet (200 mg) by mouth 3 (three) times a day as needed for bladder spasms for up to 2 days 6 tablet Discontinued Active Problems ProblemNoted DateDiagnosed DateCMC mahzhqcwp26/03/2023Mild major depression 03/31/20236447Wgbmnobdwqgb97/16/2023 Overview (02/25/2024): Last Assessment & Plan: Assessment: stable on medications History of vwoyjtlrursp12/10/9475Smlgsufnanxsdo20/22/3809Cazmdmt12/23/2018 Essential sbbrilzfpphj53/23/2018 Overview (2023): Last Assessment & Plan: Assessment: stable on medications 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 /23/2018 Resolved Problems ProblemNoted DateDiagnosed DateResolved DateObesity (BMI 30-39.9)2023 2023sychophysiological ozjekgub35Right Achilles dfyywnkczy45Localized, primary osteoarthritis of hand Foot painFemale ygyxcahen93/10/2020 2023enital wartsynecological lpnnyul9405/08/2020 03/31/20237707Ccioabtyksvv41Obesity Encounters DateTypeDepartmentCare EpwtRovquqdxrwe97/23/2025Results Follow-Up [facility] [address] [place] [phone] Pancho Villegas, Urine culture (clean catch), Urine Culture Clean Catch Xkyspq8404/18/2025 2:15 PM EDTOffice Visit [facility] [address] [place] [address] Pancho Villegas, Encounter for weight management (Primary Dx); Urinary frequency; Dysuria; Acute cystitis with wvrjucgyf23/21/2025Refill [facility] [address] [place] [address] Pancho Villegas, Urinary frequency; Npjgvmx6904/18/2025amboo flowsheet [facility] [address] [place] [address] Pancho Villegas, 04/18/20257435Tblcox81/20/2025Telephone [facility] [address] [place] [address] Pancho Villegas, 04/10/2025[facility] [address] [place] [address] Pancho Villegas, Essential hypertension; Itnujgq0502/22/2025[facility] [address] [place] [address] Ksenia Myers, DPM Encounter for follow-up examination after completed treatment for conditions other than malignant vngqxjob79/26/2025Patient Outreach [facility] POPULATION [facility] [address] [place] [address] Shilpa To, RESEARCH RN SPEC 02/21/2025[facility] [address] [place] [address] Pancho Villegas DO 02/21/2025[facility] [address] [place] [address] Pancho Villegas, from Last 3 Months Immunizations ImmunizationAdministration DatesNext DuePneumococcal Conjugate PCV 131 Pneumococcal Polysaccharide GRAG4377 Family History Medical HistoryRelationNameCommentsCancerFatherHeart diseaseMotherHyperlipidemia MotherHypertensionMotherOvarian ugujcbGyqyxr5CxbecshbDjpoYzpoylHbjlcvpiTntuxha5 Wccbuoon4RtqicvQzwjaeRcxxin5Arg4 Social History Tobacco UseTypesPacks/DayYears UsedDateSmoking Tobacco: NeverSmokeless Tobacco: Never Tobacco Cessation:Counseling Given: No Alcohol UseStandard Drinks/WeekCommentsNever0 (1 standard drink = 0.6 oz pure alcohol)caffeine intake:1-2 cups per day bokozxS3834 Health LiteracyAnswerDate RecordedHow often do you need to have [...] relatives?Once a week05/24/2024How often do you attend jehovah's witness or caodaism services?More than 4 times per year05/24/2024o you belong to any clubs or organizations such as jehovah's witness groups, unions, fraternal or athletic manuel ups, or school groups?Yes05/24/2024ttends Club or Organization MeetingsNot on file05/24/2024re you , , , , never , or living with a partner?Vtmznnk9205/24/2024UDIT-CAnswerDate RecordedQ1: How often do you have a [...] and heating?Not very hard05/24/2024HQ-2AnswerDate RecordedPatient Health Questionnaire-2 Esdyp629Fin[facility] [place] of Occupational [facility] - Occupational Stress QuestionnaireAnswerDate RecordedDo you feel stress - tense, restless, nervous, or anxious, or unable to sleep at night because your mind is troubled all the time - these days?Only a yhraxo7505/24/2024Exercise Vital SignAnswerDate RecordedOn average, how many days [...] steady place to sleep or slept in [facility] (including now)?No 03/24/2023Housing Stability Vital SignAnswerDate RecordedIn the last 12 months, was there a time when you were not able to pay the mortgage or rent on time?No 05/24/2024Number of Times Moved in the Last YearNot on file05/24/2024t any time in the past 12 months, were you homeless or living in a detention (including now)? No05/24/2024CommentsUnknownSex and Gender InformationValueDate Recorded Sex Assigned at BirthNot on fileLegal VzkBagikf28/15/2023 8:27 PM EDTGender IdentityNot on fileSexual OrientationNot on file Last Filed Vital Signs Vital SignReadingTime TakenCommentsBlood Mkiovzkv005/6804/18/2025 2:14 PM EDT Tyoqi3816 2:14 PM WGKLoegmrnmcym10.3 ??C (97.3 ??F)04/18/2025 2:14 PM EDTRespiratory Rate--Oxygen Hafkjeeejj85%04/18/2025 2:14 PM EDTInhaled Oxygen Concentration--Kaiqex14.6 kg (202 lb)11/29/2024 1:34 PM HDQArhpjo411.8 cm (5' 2.5 )04/18/2025 2:14 PM EDTBody Mass Index36.36011/29/2024 1:34 PM EDT Plan of Treatment DateTypeDepartmentCare Team (Latest Contact Info)Lwsefloilde22/10/2026 3:30 PM EDTOffice Visit [facility] [address] [place] [address] Rosalia Pimentel, VP ACCOUNT DIRECTOR-AUDIOVISUAL EQUIPMENT OPERATOR [address] [place] [address] Health MaintenanceDue DateLast DoneCommentsCT Qzoouudlbbof1955Colonoscopy 1955FIT1955FOBT1955 2409Wfyiodvahecgu1953DTaP/Tdap/Td Vaccines (1 - Tdap)1960COVID-19 Vaccine ( - season)2025 Influenza Vaccine (#1)02/27/20255551Uurhgatah13/20/95006108/18/2024, 04/28/2023, 11/18/2021, Additional history existsMedicare Annual Wellness (AWV)11/29/2025 11/29/2024, 06/16/2024, 3Colorectal Cancer Bythjhgtm03/01/2028FIT-DNA 8006/29/2024, 06/18/2021, 06/18/2021, Additional history exists Pneumococcal Vaccine: 65+ AmfsrTkulbhcap66/16/2020, 04/20/2018HIB VaccinesAged OutNo longer eligible based on patient's age to complete this topicHPV Vaccines Aged OutNo longer eligible based on patient's age to complete this topic Hepatitis A VaccinesAged OutNo longer eligible based on patient's age to complete this topicHepatitis B VaccinesAged OutNo longer eligible based on patient's age to complete this topicIPV VaccinesAged OutNo longer eligible based on patient's age to complete this topicMeningococcal B VaccineAged OutNo longer eligible based on patient's age to complete this topicMeningococcal VaccineAged OutNo longer eligible based on patient's age to complete this topicRotavirus VaccinesAged OutNo longer eligible based on patient's age to complete this topic Procedures Procedure NamePriorityDate/TimeAssociated DiagnosisCommentsPOCT URINALYSIS TAYDFQXKRhihgbz94/21/2025 2:30 PM EDT Urinary frequency Dysuria URINE CULTURE CLEAN CATCH FJAJDUItkvjkb26/21/2025 12:00 AM EDT CULTURE, URINE, YUWDRODElaibsj86/21/2025 12:00 AM EDT Urinary frequency Dysuria BI MAMMOGRAM SCREENING TOMOSYNTHESIS IURRRRCCDCvassfw50/20/2025 2:32 PM EST Encounter for screening mammogram for malignant neoplasm of breast LAB COLOGUARD?? COLON CANCER NUTBGPXanhhlu32/21/2021 from Last 3 Months or Most Recently Relevant to Health Maintenance Results * (ABNORMAL) POCT urinalysis dipstick manually [...] Location / LateralityCollection Method / VolumeCollection TimeReceived JuerDxuvi95/21/2025 2:30 PM EDT Narrative Authorizing ProviderResult TypeResult [...] - 04/20/2025 6:07 AM EDT Performed at: [address] [place] [address] ??[id number] Dean Of Girls: Michele Carvalho PhD, Phone: ??[phone] Authorizing ProviderResult TypeResult StatusMatthew C Petznick DOLAB URINE ORDERABLESFinal ResultPerforming OrganizationAddressCity/State/ZIP CodePhone Number [facility] * Urine culture (clean catch) (04/18/2025 12:00 AM EDT)ComponentValueRef Range Test MethodAnalysis TimePerformed AtPathologist SignatureUrine Cult Rt Status Final reportLABCORPSpecimen (Source)Anatomical Location / LateralityCollection Method / VolumeCollection TimeReceived TimeUrineUrine specimen obtained by clean catch procedure / Pqtoomb58omment:Urine, Clean Catch Pr Narrative [facility] - 04/20/2025 6:07 AM EDT Performed at: - [address] ??[id number] Dean Of Girls: Michele Carvalho PhD, Phone: ??[phone] Authorizing ProviderResult TypeResult StatusMatthew C Petznick DOLAB MICROBIOLOGY - GENERAL ORDERABLESFinal ResultPerforming OrganizationAddress City/State/ZIP CodePhone Number [facility] * Bilateral screening mammogram with tomosynthesis (08/18/2024 2:32 PM EST) Anatomical RegionLateralityModalityBreastBilateralMammographySpecimen (Source) Anatomical Location / LateralityCollection Method / VolumeCollection Time Received Time08/18/2024 3:44 PM EST Impressions 08/18/2024 3:54 PM EST Impression: No specific evidence of malignancy seen in either breast. BIRADS 2 - Benign Findings DENSITY: There are scattered areas of fibroglandular density. FOLLOW-UP: Routine Screening Mammogram ELECTRONICALLY SIGNED BY: Jerry Slaon M.D. Narrative 08/18/2024 3:54 PM EST Examination: BI MAMMOGRAM SCREENING TOMOSYNTHESIS BILATERAL Clinical History: screening Technique: Screening digital mammography study of both breasts was performed with 2-D and 3-D tomosynthesis imaging. Study was compared to the prior exam dated 04/28/2023. Findings: There is no evidence of interval dominant spiculated mass, grouped microcalcifications, or skin thickening which would be suggestive of malignancy. ?? A few benign-appearing calcifications are seen bilaterally. [...] Mammogram ELECTRONICALLY SIGNED BY: Jerry Sloan M.D. Authorizing ProviderResult TypeResult StatusMatthew C Petznick DOIMG PROCEDURESFinal Result * Cologuard?? colon cancer screening (06/18/2021)ComponentValueRef RangeTest MethodAnalysis TimePerformed AtPathologist SignatureCOLOGUARD RESULT REPORTABLENegativeNegativeNOMS LEGACY EXTERNAL LABComment: NEGATIVE TEST RESULT. A negative Cologuard result indicates a low likelihood that a colorectal cancer (CRC) or advanced adenoma (adenomatous polyps with more advanced pre-malignant features) ??is present. The chance that a person with a negative Cologuard test has a colorectal cancer is less than 1in 1500 (negative predictive value >99.9%) or has an advanced adenoma is less than 5.3% (negative predictive value 94.7%). These data are based on a prospective cross-sectional study of 10,000individuals at average risk for colorectal cancer who were screened with both Cologuard and colonoscopy. (Eddie Latif al, N Engl J Med 2014;370(14):1267-1189) The normal value (reference range) for this assay is negative. COLOGUARD RE-SCREENING RECOMMENDATION: Periodic colorectal cancer screening is an important part ofpreventive healthcare for asymptomatic individuals at average risk for colorectal cancer. ??Following a negative Cologuard result, the [place] Cancer Society and U.S. Multi-Society Task Force screening guidelines recommend a Cologuard re-screening interval of 3 years. References: [place] Cancer Society Guideline for Colorectal Cancer Screening: https://www.cancer.or g/cancer/sgjog-nlqacj-zzdjtu/hkuaqumll-pmlgrvepb-xnmaing/acs-recommendations.htm courtney; Vasu FOWLER, Razia JOSEPH, Klarissa TracyK, Colorectal Cancer Screening: Recommendations for Physicians and Patients from the U.S. Multi-Society Task Force on Colorectal Cancer Screening , Am J Gastroenterology 2017; 112:4913-2333. TEST DESCRIPTION: Composite algorithmic analysis of stool DNA-biomarkers with hemoglobin immunoassay. ?? Quantitative values of individual biomarkers are not reportable and are not associated with individual biomarker result reference ranges. Cologuard is intended for colorectal cancer screening ofadults of either sex, 45 years or older, [...] Vargas et al, N Engl J Med 2014;370(14):5647-1747.) Cologuard may produce a false negative or false positive result (no colorectal cancer or precancerous polyp present at colonoscopy follow up). A negative Cologuard test result does not guarantee the absence of CRC or advanced adenoma (pre-cancer). The current Cologuard screening interval is every 3 years. ([place] Cancer Society and U.S. Multi-Society Task Force). Cologuard performance data in a 10,000 patient pivotal study using colonoscopy as the reference method can be accessed at the following location: www.[employer].Beleza na Web/results. Additional description of the Cologuard test process, warnings and precautions can be found at www.[employer] Delikatesseroguard.Beleza na Web. Specimen (Source)Anatomical Location / LateralityCollection Method / Volume Collection TimeReceived Time06/18/2021 Narrative Authorizing ProviderResult TypeResult StatusMatthew Mauro [facility] ORDERABLESFinal ResultPerforming OrganizationAddressCity/State/ZIP CodePhone Number [facility] from Last 3 Months or Most Recently Relevant to Health Maintenance Insurance Care Teams Team MemberRelationshipSpecialtyStart DateEnd Date Pancho Villegas DO [address] [place] [address] [facility] - [facility] Pancho Villegas DO [address] [facility] [address] [place] [address] PCP - Medical [facility]06/29/2511
--- OUTSIDE RECORDS SUMMARY | 2025-04-30 18:07 | XMS_ITS | Encounter Summary ---
Author Organization [facility] Address [address] [place] [address] Care Team Providers Care Waiter Name Role Phone Pancho Villegas DO Primary Care Provider [phone] Pancho Villegas DO Unavailable [phone] Reason for Visit * ReasonCommentsMed Refill Encounter Details DateTypeDepartmentCare Team (Latest Contact Info)Vskzwokpbhf78/21/2025Refill [facility] [address] [place] [address] Pancho Villegas, DO [address] [place] [address] Urinary frequency; Dysuria Social History Tobacco UseTypesPacks/DayYears UsedDateSmoking Tobacco: NeverSmokeless Tobacco: NeverAlcohol UseStandard Drinks/WeekCommentsNever0 (1 standard drink = 0.6 oz pure alcohol)caffeine intake:1-2 cups per day cnhrhwT5749 Health LiteracyAnswer Date RecordedHow often do you [...] relatives?Once a week05/24/2024How often do you attend adventism or anabaptism services?More than 4 times per year05/24/2024o you belong to any clubs or organizations such as adventism groups, unions, fraternal or athletic manuel ups, or school groups?Yes05/24/2024ttends Club or Organization MeetingsNot on file05/24/2024re you , , , , never , or living with a partner?Dbihaet7605/24/2024UDIT-CAnswerDate RecordedQ1: How often do you have a [...] and heating?Not very hard05/24/2024HQ-2AnswerDate RecordedPatient Health Questionnaire-2 Vtxso560Fin[facility] [place] of Occupational Health - Occupational Stress QuestionnaireAnswerDate RecordedDo you feel stress - tense, restless, nervous, or anxious, or unable to sleep at night because your mind is troubled all the time - these days?Only a pyrceu8805/24/2024Exercise Vital SignAnswerDate RecordedOn average, how many days [...] steady place to sleep or slept in [place] (including now)?No 03/24/2023Housing Stability Vital SignAnswerDate RecordedIn the last 12 months, was there a time when you were not able to pay the mortgage or rent on time?No 05/24/2024Number of Times Moved in the Last YearNot on file05/24/2024t any time in the past 12 months, were you homeless or living in a residential (including now)? No05/24/2024CommentsUnknownSex and Gender InformationValueDate Recorded Sex Assigned at BirthNot on fileLegal WydPhiybp03/15/2023 8:27 PM EDTGender IdentityNot on fileSexual OrientationNot on filedocumented as of this encounter Miscellaneous Notes * Telephone Encounter - Tari Birmingham MA - 04/19/2025 8:57 AM EDT Rx sent to pharmacy per Dr. Pereira. documented in this encounter Plan of Treatment DateTypeDepartmentCare Team (Latest Contact Info)Lelhdeaatqh85/10/2026 3:30 PM EDTOffice Visit [facility] [address] [place] [address] Rosalia Pimentel, MINER PLACER-VETERANS SERVICE REPRESENTATIVE [address] [place] [address] documented as of this encounter Visit Diagnoses Diagnosis Urinary frequency Dysuria documented in this encounter Care Teams Team MemberRelationshipSpecialtyStart DateEnd Date Pancho Villegas DO [address] [facility] [address] [place] [address] PCP - GeneralFamily Medicine01/07/23 Pancho Villegas DO [address] [facility] [address] [place] [address] PCP - Medical [place]06/29/2511documented as of this encounter
--- NOTE | 2025-04-30 18:09 | XR_ITS ---
The [address] [address] Patient Name: SAQIB GIBSON MRN: [id number] date: 1955 Sex: F Assigned Patient Location: ED.MAIN Current Patient Location: ER Accession/Order Number: [id number] Exam Date: 04/30/2025 18:35 Report Date: 04/30/2025 18:58 At the request of: JORGE ALBERTO OSUNA Procedure: XR chest 1V PA CHEST: CLINICAL HISTORY: epigastric abdominal pain COMPARISON: 08/08/2019 Unremarkable cardiomediastinal silhouette. Lungs clear. No effusion or pneumothorax. XR/XR chest 1V IMPRESSION: Negative acute pleural or parenchymal disease. Impression dictated by: Asif Ramos M.D. 04/30/2025 6:58 PM Dictation Location: [place] [address] Electronically authenticated by: [id number] Y Date: 04/30/2025 18:58
--- NOTE | 2025-04-30 18:12 | ECG_ITS ---
The [facility] Test Date: 2025-04-30 Pat Name: SAQIB GIBSON Department: Room: - Gender: Female Junior Network Administrator: : 1955 Requested By: [id number] Order Number: [id number] Reading MD: SHANEL HERZOG M.D. Measurements Intervals [place] Rate: 70 P: 47 AK: 170 QRS: -35 QRSD: 80 T: 45 QT: 396 QTc: 416 Interpretive Statements 1100 Sinus rhythm 3433 Septal myocardial infarction, probably old 7200 Abnormal left axis deviation 8102 Low QRS voltage in chest leads 9150 abnormal ECG Compared to ECG 08/08/2019 06:33:14 Sinus tachycardia no longer present Electronically Signed On 04-30-2025 20:21:26 EST by SHANEL HERZOG M.D.
--- NOTE | 2025-04-30 18:12 | ED.NAVMDI1 ---
HPI - Nausea/Vomiting/Diarrhea General Chief complaint: Nausea/Vomiting/Diarrhea Stated complaint: VOMITING, POSS CONSTIPATION, AB PAIN Time Seen by Provider: 04/30/25 18:00 Source: patient and family Mode of arrival: walk-in Limitations: no limitations History of Present Illness HPI Narrative: Patient is a 70-year-old female presents to the ER with concerns of nausea and vomiting. Patient states she ate a Cal and cheese curds last night experienced nausea through the night and vomiting that started abruptly this morning. She states she has thrown up everything except bile, estimating approximately 10 episodes. She denies any chest pain or shortness of breath she has epigastric discomfort from the repetitive vomiting and notes a cramping sensation in her lower abdomen. Patient states she has the urge to have a bowel movement but has not gone yet today. She has taken Pepto-Bismol without relief of her nausea or indigestion symptoms. Patient denies any fever or chills. She is initially concerned that she got food poisoning. Her spouse at bedside did not eat similar food and they deny any other ill exposures. The patient is sitting up alert attentive and appears nontoxic in no acute distress. The patient still has her gallbladder and denies having similar symptoms with preceding meals. MD elicited complaint: Reports nausea, vomiting and abdominal pain Description of vomiting: Reports bilious; Denies food contents, watery, bloody, coffee grounds or feculent Description of diarrhea: Denies blood or mucus Associated nausea: Yes Associated abdominal pain: Yes Location of pain: Reports epigastric and other (Lower abdominal cramping) Pain consistency: Reports constant Severity: moderate Quality: Reports cramping Exacerbating factors: Reports vomiting Relieving factors: Reports none Associated symptoms: Reports denies other symptoms; Denies myalgias, chest pain, cough or rash Related Data Home Medications ?Medication ?Instructions ?Recorded ?Confirmed fluoxetine 20 mg capsule 20 mg PO DAILY 04/30/25 04/30/25 olmesartan 20 1 tab PO DAILY 04/30/25 04/30/25 mg-hydrochlorothiazide 12.5 mg tablet Previous Rx's ?Medication ?Instructions ?Recorded dicyclomine 20 mg tablet 20 mg PO TID PRN abdominal pain 2 04/30/25 days #6 tabs ondansetron HCl 4 mg tablet 4 mg PO Q6H PRN nausea and 04/30/25 vomiting #12 tabs Allergies Allergy/AdvReac Type Severity Reaction Status Date / Time No Known Drug Allergies Allergy Verified 04/30/25 18:08 Review of Systems ROS Constitutional Denies: fever, chills or change in weight Eyes Denies: change in vision or blurry vision Ears, nose, mouth, and throat Denies: throat pain, neck pain, throat swelling or difficulty swallowing Cardiovascular Denies: chest pain, palpitations, edema, swelling of feet/ankles, lightheadedness or shortness of breath with exertion Respiratory Denies: shortness of breath or cough Gastrointestinal Reports: abdominal pain, nausea and vomiting; Denies: diarrhea or constipation Genitourinary Denies: painful urination or urinary frequency Musculoskeletal Denies: back pain Integumentary/Breast Denies: rash or itching Neurological Reports: headache (Mild, top of head) Psychiatric Denies: anxiety PFSH PFSH Social History Little interest or pleasure in doing things: not at all Feeling down, depressed, or hopeless: not at all Exam Narrative Exam Narrative: Nurse's notes and vital signs reviewed and patient is not hypoxic. General: The patient appears well and in no apparent distress. Patient is resting comfortably in cart. Skin: Warm, dry, no pallor noted. Head: Normocephalic, atraumatic EYE: Extraocular movements intact, no conjunctival injection, PERRLA Neck: Supple, trachea midline, no tenderness, no lymphadenopathy Ears, nose, mouth, and throat: TMs are clear, normal light reflex, oral mucosa is moist, no posterior oropharynx erythema or hypertrophy, uvula is midline Cardiovascular: Regular rate and rhythm Respiratory: Patient is in no distress, no accessory muscle use, lungs are clear to auscultation, no wheezing, rales, or rhonchi. Chest wall: No tenderness Musculoskeletal: Normal ROM, no tenderness, no swelling GI: Normal bowel sounds, mild tenderness in the epigastric and right upper quadrant region, no masses appreciated. No rebound, guarding, or rigidity noted. No McBurney's point tenderness negative Hazel sign. Neurological: Alert and oriented ?4 Psychiatric: Cooperative Constitutional Vital Signs, click to edit/add: Last Vital Signs Temp 98.2 F 04/30/25 19:10 Pulse 78 04/30/25 19:10 Resp 16 04/30/25 19:10 BP 149/85 H 04/30/25 19:10 Pulse Ox 99 04/30/25 19:10 O2 Del Method Room Air 04/30/25 19:10 Course Vital Signs Vital signs: Vital Signs Temperature 98.3 F 04/30/25 18:04 Pulse Rate 76 04/30/25 18:04 Respiratory Rate 18 04/30/25 18:04 Blood Pressure 163/97 H 04/30/25 18:04 Pulse Oximetry 97 04/30/25 18:04 Oxygen Delivery Method Room Air 04/30/25 18:04 Temperature 98.2 F 04/30/25 19:10 Pulse Rate 78 04/30/25 19:10 Respiratory Rate 16 04/30/25 19:10 Blood Pressure 149/85 H 04/30/25 19:10 Pulse Oximetry 99 04/30/25 19:10 Oxygen Delivery Method Room Air 04/30/25 19:10 MDM - Nausea/Vomiting/Diarrhea MDM Narrative Medical decision making narrative: Patient presents with nausea and abrupt onset vomiting. She denies prior history of abdominal surgery. Symptoms occurred after eating takeout food. Patient denies any known ill exposures and she expressed concerns of possible food poisoning. She has not however had diarrhea and has been taking Pepto-Bismol today. She is agreeable to IV, fluids and medication for her symptoms given her age we will start with laboratory evaluation and reexamine her for clinical improvement. Patient noted to have elevated white blood cell count, vomiting, abdominal pain and patient's age discussed with patient recommend CT of the abdomen and pelvis with IV contrast for further evaluation to rule out infectious process... We discussed utility of a CT scan risks and benefits the patient states she was treated for a UTI last week and admits that her abdominal pain today is much different and she is agreeable to the CT study for further evaluation. Patient reevaluated, discussed laboratory studies and EKG Q wave in lead V2. Patient with normal troponin symptoms have been present since earlier in the morning. She feels like she is able to give us a urine sample at this time. She is requesting some ice chips stating that the nausea is much improved she still has some soreness in the epigastric region which she attributes to the recurrent vomiting. Just sore feeling. no pain. CXR was negative: Kidney function with creatinine at the upper limit of normal and BUN slightly elevated consistent with likely dehydration. Patient receiving IV fluid bolus. Patient aware that we are awaiting CT report from [place]. She notes that the abdominal discomfort now has improved and feels more like muscle soreness from her repetitive vomiting. She denies any tearing or ripping pain through to her back. She notes that despite the medication her headache is still mild and she is requesting a dose of Tylenol prior to being discharged. She reports otherwise feeling well. Tolerating ICE chips Patient reevaluated she is much improved after treatment a prescription of Bentyl and Zofran will be sent to her pharmacy. Recommend clear liquid diet and gradually progress as symptoms tolerate. We discussed her abnormal findings here with Q waves noted on her EKG and CT findings. Follow-up to your family doctor to further discuss. May return to the ER if symptoms worsen or new symptoms develop The patient is to followup with primary care physician in next 2-3 days or to return to the emergency department should any of the signs or symptoms worsen or new symptoms develop. Patient had questions answered. The patient agrees with the following Diagnosis and Treatment plan and the patient will be discharged home. Lab Data Attestation: I reviewed the patient's lab results. Labs: Lab Results 04/30/25 04/30/25 Range/Units 18:17 20:01 WBC 16.1 H (4.0-11.0) 10^3/uL RBC 5.01 (4.20-5.40) 10^6/uL Hgb 14.7 (12.0-16.0) g/dL Hct 44.0 (36.0-48.0) % MCV 87.8 (81.0-99.0) fL MCH 29.3 (26.7-34.0) pg MCHC 33.4 (29.9-35.2) g/dL RDW 13.0 (11.0-15.0) % Plt Count 336 (150-450) 10^3/uL MPV 9.2 L (9.5-13.5) fL Neut % (Auto) 78.5 H (43.0-75.0) % Lymph % (Auto) 13.9 L (20.5-60.0) % Becker % (Auto) 5.9 (1.7-12.0) % Eos % (Auto) 1.1 (0.9-7.0) % Baso % (Auto) 0.4 (0.2-2.0) % Neut # (Auto) 12.7 H (1.4-6.5) 10^3/uL Lymph # (Auto) 2.3 (1.2-3.8) 10^3/uL Becker # (Auto) 1.0 H (0.3-0.8) 10^3/uL Eos # (Auto) 0.2 (0.0-0.7) 10^3/uL Baso # (Auto) 0.1 (0.0-0.1) 10^3/uL Abs Immat Gran (auto) 0.04 H (0.00-0.03) 10^3/uL Imm/Tot Granulo (auto) 0.2 (0.0-0.5) % Sodium 140 (136-145) mmol/L Potassium 3.6 (3.5-5.1) mmol/L Chloride 103 (98-107) mmol/L Carbon Dioxide 26.3 (21.0-32.0) mmol/L Anion Gap 14.3 BUN 20.0 H (7.0-18.0) mg/dL Creatinine 1.02 (0.55-1.02) mg/dL Est GFR ( Amer) >60 (>=60 mL/min/1.73m^2) Est GFR (Non-Af Amer) 53 L (>=60 mL/min/1.73m^2) BUN/Creatinine Ratio 19.6 Glucose 107 H (74-106) mg/dL Calcium 10.4 H (8.5-10.1) mg/dL Total Bilirubin 0.5 (0.2-1.0) mg/dL AST 24 (15-37) U/L ALT 41 (14-59) U/L Alkaline Phosphatase 76 (46-116) U/L Troponin I High Sens <4.0 L (4.0-51.3) pg/mL Total Protein 7.2 (6.4-8.2) g/dL Albumin 4.0 (3.4-5.0) g/dL Globulin 3.2 g/dL Albumin/Globulin Ratio 1.3 Lipase 34.0 (16.0-77.0) U/L Urine Color Yellow (YELLOW) Urine Clarity Clear (CLEAR) Urine pH 7.0 (5.0-9.0) Ur Specific [place] 1.010 (1.005-1.025) Urine Protein Negative (NEG/TRACE) mg/dL Urine Glucose (UA) Negative (NEGATIVE) mg/dL Urine Ketones Negative (NEGATIVE) mg/dL Urine Occult Blood Trace-i (NEGATIVE) Urine Nitrite Negative (NEGATIVE) Urine Bilirubin Negative (NEGATIVE) Urine Urobilinogen 0.2 (0.2-1.0) EU/dL Ur Leukocyte Esterase Negative (NEGATIVE) Urine RBC 0-2 (0-2) #/HPF Urine WBC 0-2 A (NONE SEEN) #/HPF Ur Squamous Epith Cells Few A (NONE/RARE) #/LPF Urine Crystals None seen (None Seen) #/HPF Urine Bacteria Trace A (NONE SEEN) #/HPF Urine Casts None seen (NONE SEEN) #/LPF Urine Mucus None seen (NONE SEEN) Ur Culture Indicated? No Imaging Data Chest x-ray: My impression: CT abdomen and pelvis with IV contrast Per radiologist no acute abnormality or inflammatory process, no abnormal bowel wall thickening or obstruction. Small hiatal hernia. Colonic diverticulosis without acute diverticulitis. Hepatic steatosis. Radiologist's impression: ITS Impressions Chest X-Ray 04/30/25 18:09 IMPRESSION: Negative acute pleural or parenchymal disease. Impression dictated by: Asif Ramos M.D. 04/30/2025 6:58 PM Dictation Location: [place] [id number] Electronically authenticated by: [id number] Y Date: 04/30/2025 18:58 ECG Data Attestation: I personally reviewed and interpreted this ECG as follows: Interpretation: Prelim EKG interpretation: normal sinus rhythm 70 , no ectopy, no ST segment elevation, left axis deviation, Q waves V2. Discharge Plan Discharge Chief Complaint: Nausea/Vomiting/Diarrhea Clinical Impression: Nausea & vomiting Patient Disposition: Home, Self-Care Time of Disposition Decision: 20:25 Condition: Good Prescriptions / Home Meds: New dicyclomine 20 mg tablet 20 mg PO TID PRN (Reason: abdominal pain) 2 Days Qty: 6 0RF ondansetron HCl 4 mg tablet 4 mg PO Q6H PRN (Reason: nausea and vomiting) Qty: 12 0RF No Action fluoxetine 20 mg capsule 20 mg PO DAILY olmesartan-hydrochlorothiazide 20-12.5 mg tablet 1 tab PO DAILY Print Language: Congolese Instructions: Acute Nausea and Vomiting (ED) Additional Instructions: Recommend follow-up to your family doctor please return to the ER if symptoms worsen or new symptoms develop. CT was noted for small hiatal hernia and hepatic steatosis ( fatty liver). EKG noted for Q wave in V2 cannot rule out old myocardial infarction. Please discuss with your PCP. Referrals: JORGE ALBERTO FINK [Primary Care Provider, Unknown] - As soon as possible
[2025-04-30 18:25] LABS: Hematocrit 44.0 % (36.0-48.0); Hemoglobin 14.7 g/dL (12.0-16.0); Immature Granulocytes Abs Auto 0.04 10^3/uL (0.00-0.03); Immature Granulocytes Pct Auto 0.2 % (0.0-0.5); Lymphocytes Absolute Auto 2.3 10^3/uL (1.2-3.8); Mean Corpuscular HGB Conc 33.4 g/dL (29.9-35.2); Mean Corpuscular Hemoglobin 29.3 pg (26.7-34.0); Mean Corpuscular Volume 87.8 fL (81.0-99.0); Platelet Count 336 10^3/uL (150-450); Red Blood Count 5.01 10^6/uL (4.20-5.40); White Blood Count 16.1 10^3/uL (4.0-11.0)
[2025-04-30] MEDS: FAMOTIDINE/PF 20 MG/2 ML VIAL IV (18:28)
[2025-04-30] MEDS: HYOSCYAMINE SULFATE 0.125 MG TAB.SUBL SL (18:28)
[2025-04-30] MEDS: KETOROLAC TROMETHAMINE 30 MG/ML VIAL 15 MG IVP (18:28)
[2025-04-30] MEDS: 0.9 % SODIUM CHLORIDE 1,000 ML 999 ML IV (18:29)
[2025-04-30 18:44] LABS: Alanine Aminotransferase 41 U/L (14-59); Albumin Globulin Ratio 1.3; Albumin Level 4.0 g/dL (3.4-5.0); Alkaline Phosphatase 76 U/L (46-116); Anion Gap 14.3; Aspartate Amino Transferase 24 U/L (15-37); Blood Urea Nitrogen 20.0 mg/dL (7.0-18.0); Calcium 10.4 mg/dL (8.5-10.1); Carbon Dioxide 26.3 mmol/L (21.0-32.0); Chloride 103 mmol/L (98-107); Estimated GFR (African America >60 (>=60 mL/min/1.73m^2); Estimated GFR (Non-African Ame 53 (>=60 mL/min/1.73m^2); Globulin 3.2 g/dL; Glucose 107 mg/dL (74-106); Lipase 34.0 U/L (16.0-77.0); Potassium 3.6 mmol/L (3.5-5.1); Sodium 140 mmol/L (136-145); Total Protein 7.2 g/dL (6.4-8.2)
[2025-04-30 19:10] VITALS: BP 149/85; PULSE 78; TEMP 36.8; O2SAT 99
[2025-04-30 20:12] LABS: Glucose Urine UA NEGATIVE (NEGATIVE)
[2025-04-30 20:17] LABS: Cast Seen? NONE SEEN #/LPF (NONE SEEN); Crystals Seen? None Seen #/HPF (None Seen); Urine Culture Indicated NO
[2025-04-30 20:43] VITALS: BP 174/92; PULSE 71; O2SAT 99
[2025-04-30] MEDS: ACETAMINOPHEN 500 MG TABLET 1000 MG PO (20:43)
== END 2025-04-30 20:43 | disposition home or self-care (01) ==
PROVIDERS: Personal Emergency Response Attendant; Emergency Provider Emergency Medicine; PCP Family Medicine
DX: R11.2 Nausea with vomiting, unspecified (principal); R10.9 Unspecified abdominal pain
CPT/HCPCS: 36415; 71045; 74177; 80053; 81001; 83690; 84484; 85025; 93005; 96361; 96374; 96375; 99285; J1885; J2405; J3490; Q9967